=== PATIENT | female | born 1965 | race Caucasian/White ===

== ENCOUNTER 2016-12-10 08:29 | Emergency (ER) | payer MEDICAID ==
[~2016-12-10] VITALS: Ht 160 cm; Wt 101.4 kg
[2016-12-10] MEDS ORDERED: AMLO-511 PO (08:44)
[2016-12-10] MEDS ORDERED: PARO10TA89 PO (08:44)
[2016-12-10] MEDS ORDERED: ATOR40TA28 PO (08:44)
[2016-12-10] MEDS ORDERED: TOPI25 PO (08:44)
[2016-12-10] MEDS ORDERED: PRED20 PO (08:44)
[2016-12-10] MEDS ORDERED: MET750 PO (08:44)
[2016-12-10] MEDS ORDERED: LISI-661 PO (08:44)
[2016-12-10 09:11] LABS: BASOPHILS # (AUTO) 0.05 K/uL (0.00-0.20); BASOPHILS % (AUTO) 0.7 % (0.0-2.0); EOSINOPHILS # (AUTO) 0.19 K/uL (0.00-0.70); EOSINOPHILS % (AUTO) 3.16 % (1.0-6.0); HEMATOCRIT 31.8 % (36-46); HEMOGLOBIN 10.4 g/dL (12.0-16.0); LYMPHOCYTES % (AUTO) 32.3 % (22.0-44.0); MEAN CORPUSCULAR HEMOGLOBIN 27.4 pg (26.0-34.0); MEAN CORPUSCULAR HGB CONC 32.7 G/dL (31.0-37.0); MEAN CORPUSCULAR VOLUME 84 fL (80-100); MONOCYTES # (AUTO) 0.4 K/uL (0.1-1.0); MONOCYTES % (AUTO) 6.4 % (2.0-9.0); NEUTROPHILS # (AUTO) 3.5 K/uL (1.8-7.7); NEUTROPHILS % (AUTO) 57.4 % (40.0-70.0); PLATELET COUNT (AUTO) 231 K/uL (150-450); RED BLOOD CELL COUNT(AUTO) 3.79 MIL/uL (4.00-5.20); RED CELL DISTRIBUTION WIDTH 14.3 % (11.5-14.5); WHITE BLOOD COUNT (AUTO) 6.2 K/uL (4.5-11.0)
[2016-12-10 09:55] LABS: CALCIUM, TOTAL 8.4 mg/dL (8.8-10.5); CREATININE 0.99 mg/dL (0.60-1.30); POTASSIUM 3.8 mmol/L (3.5-5.1)
[2016-12-10 10:00] LABS: ALBUMIN 3.3 g/dL (3.4-5.0); BILIRUBIN,TOTAL 0.4 mg/dL (0.1-1.0); TOTAL PROTEIN, SERUM 6.8 g/dL (6.4-8.2)
[2016-12-10 12:00] VITALS: BP 143/82
== END 2016-12-10 12:08 | disposition home or self-care (01) ==
LOC: EMS 08:31
DX: N93.9 Abnormal uterine and vaginal bleeding, unspecified (principal); I10 Essential (primary) hypertension; Z88.1 Allergy status to other antibiotic agents; Z88.5 Allergy status to narcotic agent; Z88.0 Allergy status to penicillin; Z88.8 Allergy status to other drugs, medicaments and biological substances
CPT/HCPCS: 76856; 99285

== ENCOUNTER 2017-01-15 09:07 | Emergency (ER) | payer MEDICAID ==
[~2017-01-15] VITALS: Ht 157.5 cm; Wt 68.2 kg
[~2017-01-15 09:07] MED LIST: AMLO-511 PO; ATOR40TA28 PO; LISI-661 PO; MET750 PO; PARO10TA89 PO; PRED20 PO; TOPI25 PO
[2017-01-15] MEDS ORDERED: IBUP-2071 PO (09:15)
[2017-01-15] MEDS ORDERED: FERG325 PO (09:15)
[2017-01-15] MEDS ORDERED: ACET-66 PO (09:15)
[2017-01-15] MEDS ORDERED: HYDROCODONE/ACETAMINOPHEN 5-325 MG TABLET PO ONE (10:00)
[2017-01-15 10:14] LABS: BASOPHILS % (AUTO) 0.5 % (0.0-2.0); EOSINOPHILS % (AUTO) 3.2 % (1.0-6.0); HEMOGLOBIN 10.5 g/dL (12.0-16.0); LYMPHOCYTES # (AUTO) 1.6 K/uL (1.0-4.8); LYMPHOCYTES % (AUTO) 26.1 % (22.0-44.0); MEAN CORPUSCULAR HEMOGLOBIN 27.6 pg (26.0-34.0); MEAN CORPUSCULAR VOLUME 81 fL (80-100); MONOCYTES # (AUTO) 0.4 K/uL (0.1-1.0); MONOCYTES % (AUTO) 6.3 % (2.0-9.0); NEUTROPHILS # (AUTO) 3.8 K/uL (1.8-7.7); NEUTROPHILS % (AUTO) 63.9 % (40.0-70.0); PLATELET COUNT (AUTO) 235 K/uL (150-450); RED BLOOD CELL COUNT(AUTO) 3.81 MIL/uL (4.00-5.20)
[2017-01-15 10:22] LABS: ANION GAP 11 mmol/L (8-16); CALCIUM, TOTAL 8.5 mg/dL (8.8-10.5); CARBON DIOXIDE 24 mmol/L (22-29); CHLORIDE 106 mmol/L (98-107); CREATININE 0.93 mg/dL (0.60-1.30); GLOMERULAR FILTR. RATE CALC > 60 mL/min (>60); POTASSIUM 4.1 mmol/L (3.5-5.1); SODIUM SERUM 141 mmol/L (136-145); UREA NITROGEN, BLOOD 16 mg/dL (7-18)
[2017-01-15 10:24] LABS: INR 0.9 (0.9-1.1)
[2017-01-15 10:28] LABS: ALANINE AMINOTRANSFERASE 50 U/L (12-78); ALBUMIN 3.1 g/dL (3.4-5.0); ASPARTATE AMINOTRANSFERASE 30 U/L (15-37); BILIRUBIN,TOTAL 0.2 mg/dL (0.1-1.0); TOTAL PROTEIN, SERUM 6.9 g/dL (6.4-8.2)
[2017-01-15 12:37] VITALS: BP 149/73
== END 2017-01-15 13:01 | disposition home or self-care (01) ==
LOC: EMS 09:08
DX: N93.8 Other specified abnormal uterine and vaginal bleeding (principal); I10 Essential (primary) hypertension; Z88.0 Allergy status to penicillin; Z88.5 Allergy status to narcotic agent; Z88.1 Allergy status to other antibiotic agents; Z88.6 Allergy status to analgesic agent
CPT/HCPCS: 76856; 99285

== ENCOUNTER 2017-01-24 14:15 | Emergency (ER) | payer MEDICAID ==
[~2017-01-24] VITALS: Ht 162.6 cm; Wt 102.3 kg
[~2017-01-24 14:15] MED LIST changes: +ACET-66 PO; +FERG325 PO; +IBUP-2071 PO
[2017-01-24 15:02] LABS: BASOPHILS % (AUTO) 0.4 % (0.0-2.0); EOSINOPHILS % (AUTO) 1.7 % (1.0-6.0); HEMATOCRIT 33.2 % (36-46); LYMPHOCYTES # (AUTO) 2.8 K/uL (1.0-4.8); LYMPHOCYTES % (AUTO) 31.1 % (22.0-44.0); MEAN CORPUSCULAR HEMOGLOBIN 26.8 pg (26.0-34.0); MEAN CORPUSCULAR HGB CONC 33.3 G/dL (31.0-37.0); MEAN CORPUSCULAR VOLUME 81 fL (80-100); MONOCYTES # (AUTO) 0.6 K/uL (0.1-1.0); MONOCYTES % (AUTO) 6.6 % (2.0-9.0); NEUTROPHILS # (AUTO) 5.5 K/uL (1.8-7.7); NEUTROPHILS % (AUTO) 60.2 % (40.0-70.0); PLATELET COUNT (AUTO) 322 K/uL (150-450); RED BLOOD CELL COUNT(AUTO) 4.12 MIL/uL (4.00-5.20); RED CELL DISTRIBUTION WIDTH 14.6 % (11.5-14.5); WHITE BLOOD COUNT (AUTO) 9.2 K/uL (4.5-11.0)
[2017-01-24] MEDS ORDERED: KETOROLAC TROMETHAMINE 30 MG/ML VIAL IM ONE (17:00)
[2017-01-24] MEDS ORDERED: HYDROCODONE/ACETAMINOPHEN 5-325 MG TABLET PO ONE (19:00)
[2017-01-24 20:06] VITALS: BP 145/81
== END 2017-01-24 20:14 | disposition home or self-care (01) ==
LOC: EMS 14:18
DX: N93.9 Abnormal uterine and vaginal bleeding, unspecified (principal); I10 Essential (primary) hypertension; Z88.0 Allergy status to penicillin; Z88.5 Allergy status to narcotic agent; Z88.1 Allergy status to other antibiotic agents
CPT/HCPCS: 36415; 76856; 84703; 85025; 96372; 99285; J1885

== ENCOUNTER 2017-07-14 19:50 | Emergency (ER) | payer MEDICAID ==
[~2017-07-14] VITALS: Ht 160 cm; Wt 107.7 kg
[2017-07-14] MEDS ORDERED: PROV5 PO (20:28)
[2017-07-14] MEDS ORDERED: DEPOP150I IM (20:28)
[2017-07-14] MEDS ORDERED: HYDR25TA PO (20:28)
[2017-07-14] MEDS ORDERED: MET500 PO (20:34)
[2017-07-14 22:36] LABS: BASOPHILS % (AUTO) 0.8 % (0.0-2.0); EOSINOPHILS % (AUTO) 4.9 % (1.0-6.0); HEMATOCRIT 30.8 % (36-46); HEMOGLOBIN 10.1 g/dL (12.0-16.0); LYMPHOCYTES # (AUTO) 2.9 K/uL (1.0-4.8); LYMPHOCYTES % (AUTO) 33.6 % (22.0-44.0); MEAN CORPUSCULAR HEMOGLOBIN 24.9 pg (26.0-34.0); MEAN CORPUSCULAR HGB CONC 32.7 G/dL (31.0-37.0); MEAN CORPUSCULAR VOLUME 76 fL (80-100); MONOCYTES # (AUTO) 0.7 K/uL (0.1-1.0); MONOCYTES % (AUTO) 7.9 % (2.0-9.0); NEUTROPHILS # (AUTO) 4.6 K/uL (1.8-7.7); NEUTROPHILS % (AUTO) 52.8 % (40.0-70.0); PLATELET COUNT (AUTO) 293 K/uL (150-450); RED BLOOD CELL COUNT(AUTO) 4.06 MIL/uL (4.00-5.20)
[2017-07-14 22:44] LABS: ANION GAP 8 mmol/L (8-16); CALCIUM, TOTAL 8.6 mg/dL (8.8-10.5); CARBON DIOXIDE 28 mmol/L (22-29); CHLORIDE 103 mmol/L (98-107); CREATININE 0.84 mg/dL (0.60-1.30); GLOMERULAR FILTR. RATE CALC > 60 mL/min (>60); GLUCOSE,RANDOM 94 mg/dL (70-110); POTASSIUM 3.7 mmol/L (3.5-5.1); SODIUM SERUM 139 mmol/L (136-145); UREA NITROGEN, BLOOD 19 mg/dL (7-18)
[2017-07-14 22:45] VITALS: BP 134/71
[2017-07-14 22:50] LABS: ALANINE AMINOTRANSFERASE 34 U/L (12-78); ALBUMIN 3.6 g/dL (3.4-5.0); ALKALINE PHOSPHATASE 87 U/L (46-116); ASPARTATE AMINOTRANSFERASE 23 U/L (15-37); BILIRUBIN,TOTAL 0.3 mg/dL (0.1-1.0); LIPASE 182 U/L (73-393); TOTAL PROTEIN, SERUM 7.5 g/dL (6.4-8.2)
[2017-07-14] MEDS ORDERED: METHOCARBAMOL 500 MG TABLET PO ONE (23:00)
[2017-07-14] MEDS ORDERED: KETOROLAC TROMETHAMINE 60 MG/2 ML VIAL IM ONE (23:00)
[2017-07-14] MEDS ORDERED: METHOCARBAMOL 750 MG TABLET PO ONE (23:00)
== END 2017-07-14 23:19 | disposition home or self-care (01) ==
LOC: EMS 19:51
DX: M54.5 Low back pain (principal); N93.8 Other specified abnormal uterine and vaginal bleeding; G89.29 Other chronic pain; I10 Essential (primary) hypertension; Z88.0 Allergy status to penicillin; Z88.1 Allergy status to other antibiotic agents; Z88.5 Allergy status to narcotic agent
CPT/HCPCS: 80053; 83690; 84703; 85025; 96372; 99284; J1885

== ENCOUNTER 2017-10-13 19:58 | Emergency (ER) | payer MEDICAID ==
[~2017-10-13] VITALS: Ht 160 cm; Wt 105.0 kg
[~2017-10-13 19:58] MED LIST changes: +DEPOP150I IM; +HYDR25TA PO; +MET500 PO; -MET750 PO; +PROV5 PO
[2017-10-13] MEDS ORDERED: BACL10TA PO (20:22)
[2017-10-13] MEDS ORDERED: CALC1TAB97 PO (20:22)
[2017-10-13] MEDS ORDERED: HYDROCODONE/ACETAMINOPHEN 5-325 MG TABLET PO ONE (21:00)
[2017-10-13] MEDS ORDERED: KETOROLAC TROMETHAMINE 30 MG/ML VIAL IM ONE (21:30)
[2017-10-13 22:58] VITALS: BP 130/85
[2017-10-13] MEDS ORDERED: DiphenhydrAMINE HCL 25 MG CAPSULE PO ONE (23:15)
== END 2017-10-13 22:59 | disposition home or self-care (01) ==
LOC: EMS 20:00
DX: M54.5 Low back pain (principal); M79.89 Other specified soft tissue disorders; G89.29 Other chronic pain; F41.9 Anxiety disorder, unspecified; E78.00 Pure hypercholesterolemia, unspecified; I10 Essential (primary) hypertension; Z90.49 Acquired absence of other specified parts of digestive tract; Z88.1 Allergy status to other antibiotic agents; Z88.5 Allergy status to narcotic agent; Z88.0 Allergy status to penicillin; Z79.899 Other long term (current) drug therapy
CPT/HCPCS: 81002; 96372; 99283; J1885

== ENCOUNTER 2019-03-16 08:46 | Emergency (ER) | payer MEDICAID ==
[~2019-03-16] VITALS: Ht 160 cm; Wt 107.3 kg
[~2019-03-16 08:46] MED LIST changes: -AMLO-511 PO; +AMLO5TAB9 PO; +BACL10TA PO; +CALC1TAB97 PO; -FERG325 PO; -IBUP-2071 PO; -MET500 PO; +METH500T7 PO; -PRED20 PO
[2019-03-16] MEDS ORDERED: ACETAMINOPHEN 500 MG TABLET PO ONE (11:45)
[2019-03-16] MEDS ORDERED: KETOROLAC TROMETHAMINE 30 MG/ML VIAL IM ONE (11:45)
[2019-03-16 11:56] LABS: BASOPHILS % (AUTO) 1.2 % (0.0-2.0); EOSINOPHILS % (AUTO) 2.9 % (1.0-6.0); HEMATOCRIT 37.6 % (36-46); HEMOGLOBIN 12.5 g/dL (12.0-16.0); LYMPHOCYTES # (AUTO) 1.6 K/uL (1.0-4.8); MEAN CORPUSCULAR HEMOGLOBIN 28.5 pg (26.0-34.0); MEAN CORPUSCULAR HGB CONC 33.2 G/dL (31.0-37.0); MEAN CORPUSCULAR VOLUME 86 fL (80-100); MONOCYTES # (AUTO) 0.3 K/uL (0.1-1.0); NEUTROPHILS # (AUTO) 3.3 K/uL (1.8-7.7); NEUTROPHILS % (AUTO) 60.9 % (40.0-70.0); PLATELET COUNT (AUTO) 233 K/uL (150-450); RED BLOOD CELL COUNT(AUTO) 4.38 MIL/uL (4.00-5.20); RED CELL DISTRIBUTION WIDTH 13.6 % (11.5-14.5)
[2019-03-16 12:12] LABS: APPEARANCE,URINE CLEAR (CLEAR); BILIRUBIN,URINE NEGATIVE (NEGATIVE); GLUCOSE, URINE (UA) NEGATIVE (NEGATIVE); KETONES,URINE NEGATIVE (NEGATIVE); LEUKOCYTE ESTERASE ,URINE NEGATIVE (NEGATIVE); NITRATE,URINE NEGATIVE (NEGATIVE); OCCULT BLOOD,URINE NEGATIVE (NEGATIVE); PH,URINE 6.5 (5.0-8.0); PROTEIN,URINE NEGATIVE (NEGATIVE); UROBILINOGEN,URINE 0.2 mg/dL (<=1.0)
[2019-03-16 12:13] LABS: CALCIUM, TOTAL 8.6 mg/dL (8.8-10.5); CREATININE 1.01 mg/dL (0.60-1.30); POTASSIUM 3.4 mmol/L (3.5-5.1)
[2019-03-16 12:18] LABS: ALBUMIN 3.4 g/dL (3.4-5.0); BILIRUBIN,TOTAL 0.6 mg/dL (0.1-1.0); TOTAL PROTEIN, SERUM 6.8 g/dL (6.4-8.2)
[2019-03-16 13:22] LABS: B-TYPE NATRIURETIC PEPTIDE 90 pg/mL (0-100)
[2019-03-16 13:32] LABS: CREATINE KINASE, TOTAL ONLY 96 U/L (26-192)
[2019-03-16 16:57] VITALS: BP 145/71
== END 2019-03-16 17:00 | disposition home or self-care (01) ==
LOC: EMS 08:48
DX: M54.9 Dorsalgia, unspecified (principal); G89.29 Other chronic pain; F41.9 Anxiety disorder, unspecified; E78.00 Pure hypercholesterolemia, unspecified; I10 Essential (primary) hypertension; Z90.89 Acquired absence of other organs; Z88.1 Allergy status to other antibiotic agents; Z88.5 Allergy status to narcotic agent; Z88.0 Allergy status to penicillin; Z79.899 Other long term (current) drug therapy
CPT/HCPCS: 36415; 71045; 80053; 81003; 82550; 83880; 84484; 85025; 93005; 96372; 99285; J1885

== ENCOUNTER 2019-11-23 09:35 | Emergency (ER) | payer MEDICAID ==
[~2019-11-23] VITALS: Ht 162.6 cm; Wt 114.5 kg
[~2019-11-23 09:35] MED LIST changes: +AMLO-257 PO; -AMLO5TAB9 PO; +HYDR-1475 PO; -HYDR25TA PO
[2019-11-23] MEDS ORDERED: NITR0.4T52 SL (09:40)
[2019-11-23] MEDS ORDERED: ONDANSETRON HCL 4 MG/2 ML VIAL IVP ONE (10:00)
[2019-11-23] MEDS ORDERED: KETOROLAC TROMETHAMINE 30 MG/ML VIAL IVP ONE (10:00)
[2019-11-23] MEDS ORDERED: SODIUM CHLORIDE 0.9% 1,000 ML IV ONE (10:00)
[2019-11-23 10:38] LABS: BASOPHILS % (AUTO) 0.9 % (0.0-2.0); EOSINOPHILS % (AUTO) 3.4 % (1.0-6.0); LYMPHOCYTES # (AUTO) 1.8 K/uL (1.0-4.8); LYMPHOCYTES % (AUTO) 28.8 % (22.0-44.0); MEAN CORPUSCULAR HEMOGLOBIN 29.4 pg (26.0-34.0); MEAN CORPUSCULAR HGB CONC 33.4 G/dL (31.0-37.0); MEAN CORPUSCULAR VOLUME 88 fL (80-100); MONOCYTES # (AUTO) 0.4 K/uL (0.1-1.0); NEUTROPHILS # (AUTO) 3.8 K/uL (1.8-7.7); NEUTROPHILS % (AUTO) 60.9 % (40.0-70.0); PLATELET COUNT (AUTO) 226 K/uL (150-450); RED BLOOD CELL COUNT(AUTO) 4.08 MIL/uL (4.00-5.20); RED CELL DISTRIBUTION WIDTH 14.1 % (11.5-14.5)
[2019-11-23 10:53] LABS: ALBUMIN 3.6 g/dL (3.4-5.0); BILIRUBIN,TOTAL 0.5 mg/dL (0.1-1.0); CALCIUM, TOTAL 9.1 mg/dL (8.8-10.5); CREATININE 1.42 mg/dL (0.60-1.30)
[2019-11-23 10:56] LABS: POTASSIUM 2.8 mmol/L (3.5-5.1)
[2019-11-23] MEDS ORDERED: POTASSIUM CHLORIDE 20 MEQ ER TABLET PO ONE (11:00)
[2019-11-23 11:26] LABS: APPEARANCE,URINE CLOUDY (CLEAR); BILIRUBIN,URINE NEGATIVE (NEGATIVE); GLUCOSE, URINE (UA) NEGATIVE (NEGATIVE); KETONES,URINE NEGATIVE (NEGATIVE); LEUKOCYTE ESTERASE ,URINE MODERATE (NEGATIVE); NITRATE,URINE POSITIVE (NEGATIVE); OCCULT BLOOD,URINE NEGATIVE (NEGATIVE); PROTEIN,URINE NEGATIVE (NEGATIVE); UROBILINOGEN,URINE 0.2 mg/dL (<=1.0)
[2019-11-23 11:41] LABS: BACTERIA,URINE Moderate /HPF (None Seen); RBC,URINE None Seen /HPF (0-2); SQUAMOUS EPITHELIAL CELL,UR Few /LPF (None Seen)
[2019-11-23] MEDS ORDERED: PROP80TA4 PO (11:44)
[2019-11-23] MEDS ORDERED: LISI-662 PO (11:44)
[2019-11-23] MEDS ORDERED: GABA-1181 PO (11:44)
[2019-11-23] MEDS ORDERED: LORA10TA7 PO (11:44)
[2019-11-23] MEDS ORDERED: GENTAMICIN 100 MG/NACL ISO-OSM 50 ML IV ONE (11:45)
[2019-11-23 12:20] VITALS: BP 118/60
== END 2019-11-23 12:58 | disposition home or self-care (01) ==
LOC: EMS 09:41
DX: N12 Tubulo-interstitial nephritis, not specified as acute or chronic (principal); I10 Essential (primary) hypertension; E78.00 Pure hypercholesterolemia, unspecified
CPT/HCPCS: 36415; 74176; 80053; 81001; 83605; 83690; 85025; 87077; 87086; 96361; 96365; 96375; 99285; J1580; J1885; J2405; J7030

== ENCOUNTER 2019-12-30 14:56 | Observation (INO) | payer MEDICAID ==
[~2019-12-30] VITALS: Ht 157.5 cm; Wt 113.0 kg
[~2019-12-30 14:56] MED LIST changes: +GABA-1181 PO; -LISI-661 PO; +LISI-662 PO; +LORA10TA7 PO; +NITR0.4T52 SL; +PROP80TA4 PO
[2019-12-30] MEDS ORDERED: MORPHINE SULFATE 4 MG/ML SYRINGE IVP ONE (17:30)
[2019-12-30] MEDS ORDERED: SODIUM CHLORIDE 0.9% 1,000 ML IV ONE (17:30)
[2019-12-30] MEDS ORDERED: ONDANSETRON HCL 4 MG/2 ML VIAL IVP ONE (17:30)
[2019-12-30 17:34] LABS: BASOPHILS % (AUTO) 0.5 % (0.0-2.0); EOSINOPHILS % (AUTO) 2.8 % (1.0-6.0); HEMATOCRIT 31.1 % (36-46); HEMOGLOBIN 10.4 g/dL (12.0-16.0); LYMPHOCYTES # (AUTO) 2.3 K/uL (1.0-4.8); LYMPHOCYTES % (AUTO) 32.7 % (22.0-44.0); MEAN CORPUSCULAR HEMOGLOBIN 29.5 pg (26.0-34.0); MEAN CORPUSCULAR HGB CONC 33.3 G/dL (31.0-37.0); MEAN CORPUSCULAR VOLUME 89 fL (80-100); MONOCYTES # (AUTO) 0.6 K/uL (0.1-1.0); PLATELET COUNT (AUTO) 209 K/uL (150-450); RED BLOOD CELL COUNT(AUTO) 3.51 MIL/uL (4.00-5.20)
[2019-12-30 17:43] LABS: CREATININE 1.02 mg/dL (0.60-1.30); POTASSIUM 3.3 mmol/L (3.5-5.1)
[2019-12-30 17:44] LABS: CALCIUM, TOTAL 8.7 mg/dL (8.8-10.5)
[2019-12-30 17:49] LABS: ALBUMIN 3.2 g/dL (3.4-5.0); BILIRUBIN,TOTAL 0.3 mg/dL (0.1-1.0); TOTAL PROTEIN, SERUM 6.9 g/dL (6.4-8.2)
[2019-12-30] MEDS ORDERED: *CLINICAL-MEROPENEM DOSING CLINICAL ONE (18:30)
[2019-12-30] MEDS ORDERED: MEROPENEM 1 GM in SODIUM CHLORIDE 0.9% 100 ML IV ONE (18:30)
[2019-12-30 18:44] LABS: APPEARANCE,URINE CLEAR (CLEAR); BILIRUBIN,URINE NEGATIVE (NEGATIVE); GLUCOSE, URINE (UA) NEGATIVE (NEGATIVE); KETONES,URINE NEGATIVE (NEGATIVE); LEUKOCYTE ESTERASE ,URINE NEGATIVE (NEGATIVE); NITRATE,URINE NEGATIVE (NEGATIVE); OCCULT BLOOD,URINE NEGATIVE (NEGATIVE); PROTEIN,URINE NEGATIVE (NEGATIVE); UROBILINOGEN,URINE 0.2 mg/dL (<=1.0)
[2019-12-30] MEDS ORDERED: MAGNESIUM HYDROXIDE SUSPENSION 30 ML UDCUP PO PRN (19:15)
[2019-12-30] MEDS ORDERED: KETOROLAC TROMETHAMINE 15 MG/ML VIAL IVP PRN (19:15)
[2019-12-30] MEDS ORDERED: ONDANSETRON HCL 4 MG/2 ML VIAL IVP PRN (19:15)
[2019-12-30] MEDS ORDERED: BISACODYL 10 MG RECTAL RECTAL SUPPOSITORY PR PRN (19:15)
[2019-12-30] MEDS ORDERED: MORPHINE SULFATE 2 MG/ML SYRINGE IVP PRN (19:15)
[2019-12-30] MEDS ORDERED: POTASSIUM CHLORIDE 20 MEQ ER TABLET PO ONE (19:45)
[2019-12-30 20:30] VITALS: BP 140/66
[2019-12-30] MEDS: DOCUSATE SODIUM 100 MG CAPSULE PO SCH (21:07)
[2019-12-31] VITALS (7 sets, daily range): BP systolic 101–123; BP diastolic 49–71
[2019-12-31] MEDS: ACETAMINOPHEN 500 MG TABLET PO SCH ×3 (00:52→16:17)
[2019-12-31] MEDS: ENOXAPARIN SODIUM 40 MG/0.4 ML PF SYRINGE SQ SCH (08:54)
[2019-12-31] MEDS: DOCUSATE SODIUM 100 MG CAPSULE PO SCH (08:54)
[2019-12-31] MEDS ORDERED: DOCUSATE SODIUM 100 MG CAPSULE PO PRN (10:45)
[2019-12-31] MEDS ORDERED: BACLOFEN 10 MG TABLET PO PRN (11:00)
[2019-12-31] MEDS ORDERED: HYDROCORTISONE 2.5% 30 GM CREAM TP PRN (11:00)
[2019-12-31] MEDS ORDERED: NITROGLYCERIN 0.4 MG SUBLINGUAL TABLET #25 SL PRN (11:00)
[2019-12-31] MEDS: FERROUS SULFATE 325 MG EC TABLET PO SCH ×2 (12:27→18:04)
[2019-12-31] MEDS: PANTOPRAZOLE SODIUM 40 MG DR TABLET PO SCH (12:27)
[2019-12-31 13:17] LABS: ANION GAP 6 mmol/L (8-16); CALCIUM, TOTAL 8.6 mg/dL (8.8-10.5); CARBON DIOXIDE 30 mmol/L (22-29); CHLORIDE 104 mmol/L (98-107); CREATININE 0.83 mg/dL (0.60-1.30); GLOMERULAR FILTR. RATE CALC > 60 mL/min (>60); GLUCOSE,RANDOM 114 mg/dL (70-110); POTASSIUM 3.9 mmol/L (3.5-5.1); SODIUM SERUM 140 mmol/L (136-145); UREA NITROGEN, BLOOD 20 mg/dL (7-18)
[2019-12-31] MEDS: GABAPENTIN 300 MG CAPSULE PO SCH ×2 (16:17→21:22)
[2019-12-31] MEDS ORDERED: SENNA 187 MG TABLET PO SCH (21:00)
[2019-12-31] MEDS ORDERED: ATORVASTATIN CALCIUM 40 MG TABLET PO SCH (21:00)
[2019-12-31] MEDS: FUROSEMIDE 40 MG TABLET PO SCH (21:23)
[2020-01-01 00:01] VITALS: BP 126/54
[2020-01-01] MEDS: ACETAMINOPHEN 500 MG TABLET PO SCH ×3 (00:26→16:32)
[2020-01-01 04:14] VITALS: BP 100/56
[2020-01-01 07:19] LABS: BASOPHILS % (AUTO) 1.1 % (0.0-2.0); EOSINOPHILS % (AUTO) 4.3 % (1.0-6.0); HEMATOCRIT 30.4 % (36-46); HEMOGLOBIN 10.4 g/dL (12.0-16.0); LYMPHOCYTES # (AUTO) 1.8 K/uL (1.0-4.8); LYMPHOCYTES % (AUTO) 34.1 % (22.0-44.0); MEAN CORPUSCULAR HEMOGLOBIN 30.3 pg (26.0-34.0); MEAN CORPUSCULAR HGB CONC 34.2 G/dL (31.0-37.0); MEAN CORPUSCULAR VOLUME 89 fL (80-100); MONOCYTES # (AUTO) 0.3 K/uL (0.1-1.0); MONOCYTES % (AUTO) 6.4 % (2.0-9.0); NEUTROPHILS # (AUTO) 2.8 K/uL (1.8-7.7); NEUTROPHILS % (AUTO) 54.1 % (40.0-70.0); PLATELET COUNT (AUTO) 193 K/uL (150-450); RED BLOOD CELL COUNT(AUTO) 3.43 MIL/uL (4.00-5.20)
[2020-01-01 07:37] LABS: ANION GAP 6 mmol/L (8-16); CALCIUM, TOTAL 8.3 mg/dL (8.8-10.5); CARBON DIOXIDE 31 mmol/L (22-29); CHLORIDE 105 mmol/L (98-107); CREATININE 0.86 mg/dL (0.60-1.30); GLOMERULAR FILTR. RATE CALC > 60 mL/min (>60); GLUCOSE,RANDOM 100 mg/dL (70-110); POTASSIUM 3.5 mmol/L (3.5-5.1); SODIUM SERUM 142 mmol/L (136-145); UREA NITROGEN, BLOOD 18 mg/dL (7-18)
[2020-01-01 08:48] VITALS: BP 120/73
[2020-01-01] MEDS ORDERED: ASCORBIC ACID 500 MG TABLET PO SCH (09:00)
[2020-01-01] MEDS: PANTOPRAZOLE SODIUM 40 MG DR TABLET PO SCH (09:27)
[2020-01-01] MEDS: GABAPENTIN 300 MG CAPSULE PO SCH ×2 (09:27→16:32)
[2020-01-01] MEDS: ENOXAPARIN SODIUM 40 MG/0.4 ML PF SYRINGE SQ SCH (09:27)
[2020-01-01] MEDS: FERROUS SULFATE 325 MG EC TABLET PO SCH ×2 (09:28→11:50)
[2020-01-01] MEDS: FUROSEMIDE 40 MG TABLET PO SCH (09:28)
[2020-01-01 12:03] VITALS: BP 119/69
[2020-01-01] MEDS ORDERED: ACET-66 PO (16:47)
[2020-01-01] MEDS ORDERED: ASCO500 PO (16:48)
[2020-01-01] MEDS ORDERED: FERR-89 PO (16:48)
[2020-01-01] MEDS ORDERED: FURO40 PO (16:49)
[2020-01-01] MEDS ORDERED: GABA-1181 PO (16:49)
[2020-01-01] MEDS ORDERED: SENN8.6T90 PO (16:50)
[2020-01-01] MEDS ORDERED: BACL5TAB PO (16:52)
[2020-01-01] MEDS ORDERED: HYDR28.35 TP (16:53)
[2020-01-01] MEDS ORDERED: NITR0.4T50 SL (16:55)
== END 2020-01-01 19:10 | disposition home or self-care (01) ==
LOC: EMS 15:03 → INTOOBSV 19:14 → 5S 19:14 → 6N 12-31 11:20
PROVIDERS: ADMIT Internal Medicine; ATTEND Internal Medicine
DX: R30.0 Dysuria (principal); K59.00 Constipation, unspecified; E66.01 Morbid (severe) obesity due to excess calories; E87.6 Hypokalemia; I10 Essential (primary) hypertension; Z68.42 Body mass index [BMI] 45.0-49.9, adult; M51.36 Other intervertebral disc degeneration, lumbar region; E78.00 Pure hypercholesterolemia, unspecified
CPT/HCPCS: 36415 ×3; 72131; 80048 ×2; 80053; 81003; 82150; 83690; 84145; 85025 ×2; 93306; 96365; 96372 ×2; 96375; 97110; 97116; 97165; 97535; 99219 ×3; 99284; J1650 ×2; J1885 ×2; J2185; J2270 ×2; J2405; J7030; J7050

== ENCOUNTER 2020-05-01 09:23 | Inpatient (IN) | payer MEDICAID ==
[~2020-05-01] VITALS: Ht 160 cm; Wt 108.5 kg
[~2020-05-01 09:23] MED LIST changes: -AMLO-257 PO; +ASCO500 PO; -BACL10TA PO; +BACL5TAB PO; +FERR-89 PO; +FURO40 PO; -HYDR-1475 PO; +HYDR28.35 TP; -LISI-662 PO; -METH500T7 PO; +NITR0.4T50 SL; -NITR0.4T52 SL; -PROP80TA4 PO; -PROV5 PO; +SENN8.6T90 PO; -TOPI25 PO
[2020-05-01] MEDS ORDERED: ASPIRIN 325 MG TABLET PO ONE (09:45)
[2020-05-01] MEDS ORDERED: IOVERSOL 350 MG/ML 100 ML VIAL ONE (10:07)
[2020-05-01] MEDS ORDERED: SODIUM CHLORIDE 0.9% 100 ML ONE (10:07)
[2020-05-01 10:10] LABS: BASOPHILS % (AUTO) 0.9 % (0.0-2.0); EOSINOPHILS % (AUTO) 4.6 % (1.0-6.0); HEMATOCRIT 31.7 % (36-46); HEMOGLOBIN 10.3 g/dL (12.0-16.0); LYMPHOCYTES # (AUTO) 2.9 K/uL (1.0-4.8); LYMPHOCYTES % (AUTO) 39.5 % (22.0-44.0); MEAN CORPUSCULAR HEMOGLOBIN 28.2 pg (26.0-34.0); MEAN CORPUSCULAR HGB CONC 32.4 G/dL (31.0-37.0); MEAN CORPUSCULAR VOLUME 87 fL (80-100); MONOCYTES # (AUTO) 0.5 K/uL (0.1-1.0); MONOCYTES % (AUTO) 7.3 % (2.0-9.0); NEUTROPHILS # (AUTO) 3.6 K/uL (1.8-7.7); NEUTROPHILS % (AUTO) 47.7 % (40.0-70.0); PLATELET COUNT (AUTO) 219 K/uL (150-450); RED BLOOD CELL COUNT(AUTO) 3.64 MIL/uL (4.00-5.20); RED CELL DISTRIBUTION WIDTH 14.4 % (11.5-14.5)
[2020-05-01 10:15] LABS: D-DIMER 0.82 mg/L FEU (0.00-0.50); PROTHROMBIN TIME 10.9 SEC (9.4-11.6)
[2020-05-01 10:19] LABS: CREATININE 0.99 mg/dL (0.60-1.30); POTASSIUM 4.2 mmol/L (3.5-5.1)
[2020-05-01 10:43] LABS: ALBUMIN 3.3 g/dL (3.4-5.0); BILIRUBIN,TOTAL 0.3 mg/dL (0.1-1.0); TOTAL PROTEIN, SERUM 7.3 g/dL (6.4-8.2)
[2020-05-01 11:21] LABS: COVID AG,FIA SOURCE NASOPHARYNGEAL
[2020-05-01 11:27] LABS: APPEARANCE,URINE CLEAR (CLEAR); BILIRUBIN,URINE NEGATIVE (NEGATIVE); GLUCOSE, URINE (UA) NEGATIVE (NEGATIVE); KETONES,URINE NEGATIVE (NEGATIVE); LEUKOCYTE ESTERASE ,URINE NEGATIVE (NEGATIVE); NITRATE,URINE NEGATIVE (NEGATIVE); OCCULT BLOOD,URINE NEGATIVE (NEGATIVE); PH,URINE 6.5 (5.0-8.0); PROTEIN,URINE NEGATIVE (NEGATIVE); UROBILINOGEN,URINE 0.2 mg/dL (<=1.0)
[2020-05-01] MEDS ORDERED: MAGNESIUM HYDROXIDE SUSPENSION 30 ML UDCUP PO PRN (11:45)
[2020-05-01] MEDS ORDERED: ONDANSETRON HCL 4 MG/2 ML VIAL IVP PRN (11:45)
[2020-05-01] MEDS ORDERED: ZOLPIDEM TARTRATE 5 MG TABLET PO PRN (11:45)
[2020-05-01] MEDS ORDERED: BISACODYL 10 MG RECTAL RECTAL SUPPOSITORY PR PRN (11:45)
[2020-05-01] MEDS ORDERED: IPRATROPIUM BROMIDE 0.5 MG/2.5 ML NEB SOLUTION NEB PRN (11:45)
[2020-05-01] MEDS ORDERED: HYDROCORTISONE 2.5% 30 GM OINTMENT TP PRN (11:45)
[2020-05-01] MEDS ORDERED: LORATADINE 10 MG TABLET PO PRN (11:45)
[2020-05-01] MEDS ORDERED: ALBUTEROL SULFATE 2.5 MG/0.5 ML NEB SOLUTION NEB PRN (11:45)
[2020-05-01] MEDS ORDERED: NITROGLYCERIN 0.4 MG SUBLINGUAL TABLET #25 SL PRN (11:45)
[2020-05-01] MEDS ORDERED: BACLOFEN 10 MG TABLET PO PRN (11:45)
[2020-05-01] MEDS: NITROGLYCERIN 2% (1 GM=INCH) PACKET TP SCH ×2 (11:53→18:14)
[2020-05-01] MEDS: FERROUS SULFATE 325 MG EC TABLET PO SCH ×3 (12:00→18:15)
[2020-05-01 12:14] LABS: INFLUENZA TYPE A NEGATIVE FOR TYPE A (NEGATIVE); INFLUENZA TYPE B NEGATIVE FOR TYPE B (NEGATIVE)
[2020-05-01] MEDS ORDERED: EPINEPHrine 1:1,000 [1 MG/ML] AMP ONE (13:42)
[2020-05-01] MEDS ORDERED: SUCCINYLCHOLINE CHLORIDE 20 MG/ML 10 ML VIAL ONE (13:44)
[2020-05-01] MEDS ORDERED: RAPID SEQUENCE KIT [RSI] 1 EACH KIT MISC ONE (13:44)
[2020-05-01] MEDS ORDERED: KETAMINE HCL 50 MG/ML 10 ML VIAL ONE (13:45)
[2020-05-01] MEDS ORDERED: MethylPREDNISolone SOD SUCC 125 MG/2 ML VIAL IVP ONE (13:45)
[2020-05-01] MEDS ORDERED: FAMOTIDINE 10 MG/ML 2 ML VIAL IVP ONE (13:45)
[2020-05-01] MEDS ORDERED: DiphenhydrAMINE HCL 50 MG/ML VIAL IVP ONE (13:45)
[2020-05-01] MEDS ORDERED: EPINEPHrine 1:1,000 [1 MG/ML] AMP IM ONE (13:45)
[2020-05-01] MEDS ORDERED: PROPOFOL 1000 MG/ISO-OSM 100 ML IV PRN (14:00)
[2020-05-01 14:21] LABS: ABG A-A DIFF O2 576.4 mmHg (10-20.0); ABG BASE EXCESS -2.3 mmol/L (-2.0-3.0); ABG HCO3 21.9 mmol/L (22.0-26.0); ABG OXYGEN CONTENT 15.6 mL/dL (15.0-23.0); ABG OXYGEN SATURATION 93.1 % (95.0-98.0); ABG OXYHEMOGLOBIN 93.1 % (94.0-100.0); ABG PCO2 59 mmHg (35-45); ABG PH 7.246 (7.35-7.450); ABG TOTAL HEMOGLOBIN 11.9 G/dL (12.0-18.0); PO2, ARTERIAL BG 77.8 mmHg (84.0-92.0); SOURCE, BLOOD GAS ARTERIAL; TEMPERATURE, FAHRENHEIT, BG 98.6 FAHREN (96.0-98.6)
[2020-05-01 14:27] LABS: O2 DEVICE,BLOOD GAS VENTILATOR (ROOM AIR); SITE, BLOOD GAS LFT RADIAL
[2020-05-01] MEDS: PROPOFOL 1000 MG/ISO-OSM 100 ML IV PRN ×3 (14:27→20:53)
[2020-05-01 14:28] LABS: PEEP,BG 8 cm H2O; VT, ABG 400 ml
[2020-05-01] MEDS ORDERED: AZITHROMYCIN 500 MG/NS 250 ML IV ONE (14:45)
[2020-05-01] MEDS ORDERED: AZTREONAM 2 GM in DEXTROSE 5%-WATER 50 ML IV ONE (14:45)
[2020-05-01] MEDS ORDERED: VANCOMYCIN HCL 1 GM/D5% WATER 200 ML IV ONE (14:45)
[2020-05-01 15:43] LABS: ABG A-A DIFF O2 506.3 mmHg (10-20.0); ABG BASE EXCESS -0.7 mmol/L (-2.0-3.0); ABG CARBOXYHEMOGLOBIN 0.3 % (0.0-1.5); ABG HCO3 23.9 mmol/L (22.0-26.0); ABG OXYGEN CONTENT 15.7 mL/dL (15.0-23.0); ABG OXYGEN SATURATION 98.7 % (95.0-98.0); ABG OXYHEMOGLOBIN 98.4 % (94.0-100.0); ABG PCO2 43 mmHg (35-45); ABG PH 7.375 (7.35-7.450); ABG TOTAL HEMOGLOBIN 11.1 G/dL (12.0-18.0); PO2, ARTERIAL BG 163.8 mmHg (84.0-92.0); SOURCE, BLOOD GAS ARTERIAL; TEMPERATURE, FAHRENHEIT, BG 98.6 FAHREN (96.0-98.6)
[2020-05-01 16:05] LABS: O2 DEVICE,BLOOD GAS VENTILATOR (ROOM AIR); PEEP,BG 8 cm H2O; SITE, BLOOD GAS RT RADIAL; VT, ABG 400 ml
[2020-05-01] MEDS ORDERED: FUROSEMIDE 40 MG/4 ML VIAL IVP ONE (16:30)
[2020-05-01] MEDS ORDERED: *CLINICAL-LEVOFLOXACIN IVPB DOSING CLINICAL ONE (16:30)
[2020-05-01] MEDS: HEPARIN SODIUM,PORCINE 5,000 UNITS/ML VIAL SQ SCH (16:43)
[2020-05-01] MEDS ORDERED: ETOMIDATE 2 MG/ML 10 ML VIAL IV ONE (17:15)
[2020-05-01] MEDS ORDERED: ROCURONIUM BROMIDE 10 MG/ML 5 ML VIAL IV ONE (17:16)
[2020-05-01] MEDS ORDERED: SODIUM CHLORIDE 0.9% 250 ML IV ONE (18:01)
[2020-05-01] MEDS: MethylPREDNISolone SOD SUCC 125 MG/2 ML VIAL IVP SCH (18:14)
[2020-05-01] MEDS: MetroNIDAZOLE 500 MG/NACL 100 ML IV SCH (18:14)
[2020-05-01] MEDS: GABAPENTIN 300 MG CAPSULE PO SCH ×2 (18:14→20:53)
[2020-05-01] MEDS: LEVOFLOXACIN 750 MG/D5% WATER 150 ML IV SCH (18:14)
[2020-05-01 20:00] VITALS: BP 124/69
[2020-05-01] MEDS: ATORVASTATIN CALCIUM 40 MG TABLET PO SCH (20:53)
[2020-05-01] MEDS: SENNA 187 MG TABLET PO SCH (20:53)
[2020-05-01] MEDS: DOCUSATE SODIUM 100 MG CAPSULE PO SCH (20:54)
[2020-05-01] MEDS: PARoxetine HCL 10 MG TABLET PO SCH (20:54)
[2020-05-01] MEDS: FUROSEMIDE 40 MG TABLET PO SCH (20:55)
[2020-05-02] VITALS: BP 118/65
[2020-05-02] MEDS: MethylPREDNISolone SOD SUCC 125 MG/2 ML VIAL IVP SCH ×4 (00:43→18:22)
[2020-05-02] MEDS: HEPARIN SODIUM,PORCINE 5,000 UNITS/ML VIAL SQ SCH ×3 (00:44→16:06)
[2020-05-02] MEDS: NITROGLYCERIN 2% (1 GM=INCH) PACKET TP SCH ×3 (00:44→12:44)
[2020-05-02] MEDS: MetroNIDAZOLE 500 MG/NACL 100 ML IV SCH ×3 (00:45→16:07)
[2020-05-02] MEDS: PROPOFOL 1000 MG/ISO-OSM 100 ML IV PRN ×6 (01:16→19:12)
[2020-05-02 04:00] VITALS: BP 144/73
[2020-05-02] MEDS ORDERED: PROPOFOL 1000 MG/ISO-OSM 100 ML IV ONE (05:02)
[2020-05-02 08:00] VITALS: BP 153/82
[2020-05-02] MEDS: FERROUS SULFATE 325 MG EC TABLET PO SCH ×3 (08:49→18:22)
[2020-05-02] MEDS: DOCUSATE SODIUM 100 MG CAPSULE PO SCH ×2 (08:50→21:24)
[2020-05-02] MEDS: FUROSEMIDE 40 MG TABLET PO SCH ×2 (08:50→21:24)
[2020-05-02] MEDS: PANTOPRAZOLE SODIUM 40 MG DR TABLET PO SCH (08:50)
[2020-05-02] MEDS: ASPIRIN 81 MG CHEWABLE TABLET PO SCH (08:50)
[2020-05-02] MEDS: ASCORBIC ACID 500 MG TABLET PO SCH (08:50)
[2020-05-02] MEDS: CALCIUM OYSTER SHELL 250 MG-VIT D3 125 UNITS TABLET PO SCH (08:51)
[2020-05-02] MEDS: PARoxetine HCL 10 MG TABLET PO SCH ×2 (08:51→21:24)
[2020-05-02] MEDS: GABAPENTIN 300 MG CAPSULE PO SCH ×3 (09:14→21:24)
[2020-05-02 12:00] VITALS: BP 143/77
[2020-05-02 16:00] VITALS: BP 147/72
[2020-05-02] MEDS: LEVOFLOXACIN 750 MG/D5% WATER 150 ML IV SCH (18:22)
[2020-05-02 20:00] VITALS: BP 145/81
[2020-05-02] MEDS: ATORVASTATIN CALCIUM 40 MG TABLET PO SCH (21:24)
[2020-05-02] MEDS: SENNA 187 MG TABLET PO SCH (21:24)
[2020-05-03] VITALS: BP 141/64
[2020-05-03] MEDS: MetroNIDAZOLE 500 MG/NACL 100 ML IV SCH ×3 (00:27→17:17)
[2020-05-03] MEDS: HEPARIN SODIUM,PORCINE 5,000 UNITS/ML VIAL SQ SCH ×3 (00:27→16:21)
[2020-05-03] MEDS: MethylPREDNISolone SOD SUCC 125 MG/2 ML VIAL IVP SCH ×4 (00:27→18:40)
[2020-05-03] MEDS: PROPOFOL 1000 MG/ISO-OSM 100 ML IV PRN ×4 (01:26→17:17)
[2020-05-03 04:00] VITALS: BP 136/71
[2020-05-03 08:00] VITALS: BP 172/92
[2020-05-03] MEDS: FERROUS SULFATE 325 MG EC TABLET PO SCH ×3 (08:00→17:30)
[2020-05-03] MEDS ORDERED: DEXMEDETOMIDINE HCL 200 MCG in SODIUM CHLORIDE 0.9% 48 ML IV PRN (08:30)
[2020-05-03] MEDS: CALCIUM OYSTER SHELL 250 MG-VIT D3 125 UNITS TABLET PO SCH (08:36)
[2020-05-03] MEDS: GABAPENTIN 300 MG CAPSULE PO SCH ×3 (08:36→20:51)
[2020-05-03] MEDS: ASPIRIN 81 MG CHEWABLE TABLET PO SCH (08:36)
[2020-05-03] MEDS: ASCORBIC ACID 500 MG TABLET PO SCH (08:36)
[2020-05-03] MEDS: PARoxetine HCL 10 MG TABLET PO SCH ×2 (08:36→20:51)
[2020-05-03] MEDS: FUROSEMIDE 40 MG TABLET PO SCH ×2 (08:36→20:51)
[2020-05-03] MEDS: PANTOPRAZOLE SODIUM 40 MG DR TABLET PO SCH (08:36)
[2020-05-03] MEDS: DOCUSATE SODIUM 100 MG CAPSULE PO SCH ×2 (08:36→20:51)
[2020-05-03] MEDS: HYDROmorphone 2 MG/ML VIAL IVP PRN ×3 (09:02→21:30)
[2020-05-03 09:30] LABS: BASOPHILS % (AUTO) 0.1 % (0.0-2.0); EOSINOPHILS % (AUTO) 0 % (1.0-6.0); HEMOGLOBIN 11.7 g/dL (12.0-16.0); LYMPHOCYTES # (AUTO) 0.8 K/uL (1.0-4.8); LYMPHOCYTES % (AUTO) 6.9 % (22.0-44.0); MEAN CORPUSCULAR HGB CONC 32.4 G/dL (31.0-37.0); MEAN CORPUSCULAR VOLUME 86 fL (80-100); MONOCYTES # (AUTO) 0.5 K/uL (0.1-1.0); MONOCYTES % (AUTO) 4.8 % (2.0-9.0); NEUTROPHILS # (AUTO) 10.1 K/uL (1.8-7.7); PLATELET COUNT (AUTO) 235 K/uL (150-450); RED BLOOD CELL COUNT(AUTO) 4.17 MIL/uL (4.00-5.20); RED CELL DISTRIBUTION WIDTH 15.1 % (11.5-14.5)
[2020-05-03 09:31] LABS: NEUTROPHILS % (AUTO) 88.2 % (40.0-70.0)
[2020-05-03 09:38] LABS: CALCIUM, TOTAL 8.8 mg/dL (8.8-10.5); CREATININE 1.11 mg/dL (0.60-1.30)
[2020-05-03 09:42] LABS: POTASSIUM 2.7 mmol/L (3.5-5.1)
[2020-05-03] MEDS ORDERED: SODIUM CHLORIDE 0.9% 500 ML IV ONE (10:37)
[2020-05-03] MEDS: POTASSIUM CHL 10 MEQ/WATER 50 ML IV PRN ×4 (10:41→17:16)
[2020-05-03] MEDS: ACETAMINOPHEN 325 MG TABLET PO PRN (10:54)
[2020-05-03 12:00] VITALS: BP 125/67
[2020-05-03 16:00] VITALS: BP 151/76
[2020-05-03] MEDS: LEVOFLOXACIN 750 MG/D5% WATER 150 ML IV SCH (18:40)
[2020-05-03 20:00] VITALS: BP 145/68
[2020-05-03] MEDS: ATORVASTATIN CALCIUM 40 MG TABLET PO SCH (20:51)
[2020-05-03] MEDS: SENNA 187 MG TABLET PO SCH (20:51)
[2020-05-04] VITALS: BP 142/70
[2020-05-04] MEDS: PROPOFOL 1000 MG/ISO-OSM 100 ML IV PRN ×2 (00:32→05:34)
[2020-05-04] MEDS: MethylPREDNISolone SOD SUCC 125 MG/2 ML VIAL IVP SCH ×4 (00:32→17:58)
[2020-05-04] MEDS: HEPARIN SODIUM,PORCINE 5,000 UNITS/ML VIAL SQ SCH ×3 (00:33→16:02)
[2020-05-04] MEDS: MetroNIDAZOLE 500 MG/NACL 100 ML IV SCH ×3 (00:50→16:50)
[2020-05-04] MEDS: ACETAMINOPHEN 325 MG TABLET PO PRN ×5 (00:57→19:39)
[2020-05-04 04:00] VITALS: BP 146/71
[2020-05-04] MEDS ORDERED: SODIUM CHLORIDE 0.9% 250 ML IV ONE (05:29)
[2020-05-04 06:14] LABS: CALCIUM, TOTAL 8.7 mg/dL (8.8-10.5); CREATININE 1.13 mg/dL (0.60-1.30); POTASSIUM 3.1 mmol/L (3.5-5.1)
[2020-05-04] MEDS: POTASSIUM CHL 10 MEQ/WATER 50 ML IV PRN ×6 (06:34→22:01)
[2020-05-04 08:00] VITALS: BP 175/81
[2020-05-04] MEDS: DOCUSATE SODIUM 100 MG CAPSULE PO SCH ×2 (08:12→19:39)
[2020-05-04] MEDS: FUROSEMIDE 40 MG TABLET PO SCH ×2 (08:12→20:23)
[2020-05-04] MEDS: GABAPENTIN 300 MG CAPSULE PO SCH ×3 (08:12→20:24)
[2020-05-04] MEDS: ASPIRIN 81 MG CHEWABLE TABLET PO SCH (08:13)
[2020-05-04] MEDS: FERROUS SULFATE 325 MG EC TABLET PO SCH (08:14)
[2020-05-04] MEDS: ASCORBIC ACID 500 MG TABLET PO SCH (08:14)
[2020-05-04] MEDS: PARoxetine HCL 10 MG TABLET PO SCH ×2 (08:14→20:23)
[2020-05-04] MEDS: CALCIUM OYSTER SHELL 250 MG-VIT D3 125 UNITS TABLET PO SCH (08:14)
[2020-05-04] MEDS: PANTOPRAZOLE SODIUM 40 MG DR TABLET PO SCH (08:14)
[2020-05-04 11:29] LABS: ABG A-A DIFF O2 130.1 mmHg (10-20.0); ABG BASE EXCESS 8.2 mmol/L (-2.0-3.0); ABG CARBOXYHEMOGLOBIN 0.1 % (0.0-1.5); ABG HCO3 30.9 mmol/L (22.0-26.0); ABG METHEMOGLOBIN 0.3 % (0.0-1.5); ABG OXYGEN CONTENT 16.5 mL/dL (15.0-23.0); ABG OXYGEN SATURATION 96.8 % (95.0-98.0); ABG OXYHEMOGLOBIN 96.4 % (94.0-100.0); ABG PCO2 50 mmHg (35-45); ABG PH 7.433 (7.35-7.450); ABG TOTAL HEMOGLOBIN 12.1 G/dL (12.0-18.0); PO2, ARTERIAL BG 97.6 mmHg (84.0-92.0); SOURCE, BLOOD GAS ARTERIAL; TEMPERATURE, FAHRENHEIT, BG 99.3 FAHREN (96.0-98.6)
[2020-05-04 11:30] LABS: CPAP, BG 5 cm H2O; O2 DEVICE,BLOOD GAS VENTILATOR (ROOM AIR); PRESSURE SUPPORT, BG 8 cm H2O; SITE, BLOOD GAS LFT RADIAL; SPONTANEOUS VT, BG 660 ml; VENT MODE, BG CPAP (ROOM AIR)
[2020-05-04 12:00] VITALS: BP 172/71
[2020-05-04] MEDS: HYDROmorphone 2 MG/ML VIAL IVP PRN ×2 (12:52→21:06)
[2020-05-04 16:00] VITALS: BP 146/91
[2020-05-04 16:59] LABS: MAGNESIUM 2.4 mg/dL (1.80-2.40); POTASSIUM 3.3 mmol/L (3.5-5.1)
[2020-05-04 17:19] LABS: HEMOGLOBIN A1C 5.7 % (3.8-5.6)
[2020-05-04] MEDS: LEVOFLOXACIN 750 MG/D5% WATER 150 ML IV SCH (17:58)
[2020-05-04] MEDS: AmLODIPine BESYLATE 10 MG TABLET PO SCH (18:40)
[2020-05-04 20:00] VITALS: BP 177/87
[2020-05-04] MEDS: ATORVASTATIN CALCIUM 40 MG TABLET PO SCH (20:23)
[2020-05-04] MEDS: SENNA 187 MG TABLET PO SCH (20:23)
[2020-05-05] VITALS (9 sets, daily range): BP systolic 155–188; BP diastolic 74–97
[2020-05-05] MEDS: HEPARIN SODIUM,PORCINE 5,000 UNITS/ML VIAL SQ SCH ×3 (00:41→16:07)
[2020-05-05] MEDS: MethylPREDNISolone SOD SUCC 40 MG/ML VIAL IVP SCH ×2 (00:41→05:27)
[2020-05-05] MEDS: HYDROmorphone 2 MG/ML VIAL IVP PRN (01:04)
[2020-05-05] MEDS: MetroNIDAZOLE 500 MG/NACL 100 ML IV SCH ×3 (01:25→16:07)
[2020-05-05] MEDS: ACETAMINOPHEN 325 MG TABLET PO PRN ×4 (02:42→21:27)
[2020-05-05] MEDS: POTASSIUM CHLORIDE 20 MEQ ER TABLET PO PRN ×2 (05:27→11:29)
[2020-05-05] MEDS: PANTOPRAZOLE SODIUM 40 MG DR TABLET PO SCH (08:00)
[2020-05-05] MEDS: AmLODIPine BESYLATE 10 MG TABLET PO SCH (08:00)
[2020-05-05] MEDS: CALCIUM OYSTER SHELL 250 MG-VIT D3 125 UNITS TABLET PO SCH (08:00)
[2020-05-05] MEDS: ASPIRIN 81 MG CHEWABLE TABLET PO SCH (08:00)
[2020-05-05] MEDS: GABAPENTIN 300 MG CAPSULE PO SCH ×3 (08:00→21:25)
[2020-05-05] MEDS: PredniSONE 10 MG TABLET PO SCH (08:00)
[2020-05-05] MEDS: FUROSEMIDE 40 MG TABLET PO SCH ×2 (08:00→21:25)
[2020-05-05] MEDS: DOCUSATE SODIUM 100 MG CAPSULE PO SCH ×2 (08:00→21:25)
[2020-05-05] MEDS: PARoxetine HCL 10 MG TABLET PO SCH ×2 (08:00→21:26)
[2020-05-05] MEDS ORDERED: HydrALAZINE HCL 20 MG/ML VIAL IVP PRN (09:30)
[2020-05-05] MEDS ORDERED: SODIUM CHLORIDE 0.9% 250 ML IV ONE (16:14)
[2020-05-05] MEDS: LEVOFLOXACIN 750 MG/D5% WATER 150 ML IV SCH (17:15)
[2020-05-05] MEDS: ATORVASTATIN CALCIUM 40 MG TABLET PO SCH (21:25)
[2020-05-05] MEDS: SENNA 187 MG TABLET PO SCH (21:25)
[2020-05-06 00:15] VITALS: BP 135/84
[2020-05-06] MEDS: MetroNIDAZOLE 500 MG/NACL 100 ML IV SCH ×2 (00:48→08:17)
[2020-05-06] MEDS: HEPARIN SODIUM,PORCINE 5,000 UNITS/ML VIAL SQ SCH ×2 (00:48→08:19)
[2020-05-06 05:09] VITALS: BP 133/74
[2020-05-06] MEDS: ACETAMINOPHEN 325 MG TABLET PO PRN (06:18)
[2020-05-06 07:14] VITALS: BP 131/65
[2020-05-06] MEDS: PANTOPRAZOLE SODIUM 40 MG DR TABLET PO SCH (08:18)
[2020-05-06] MEDS: GABAPENTIN 300 MG CAPSULE PO SCH (08:18)
[2020-05-06] MEDS: FUROSEMIDE 40 MG TABLET PO SCH (08:18)
[2020-05-06] MEDS: ASPIRIN 81 MG CHEWABLE TABLET PO SCH (08:18)
[2020-05-06] MEDS: AmLODIPine BESYLATE 10 MG TABLET PO SCH (08:18)
[2020-05-06] MEDS: PredniSONE 10 MG TABLET PO SCH (08:18)
[2020-05-06] MEDS: DOCUSATE SODIUM 100 MG CAPSULE PO SCH (08:18)
[2020-05-06] MEDS: CALCIUM OYSTER SHELL 250 MG-VIT D3 125 UNITS TABLET PO SCH (08:18)
[2020-05-06] MEDS: PARoxetine HCL 10 MG TABLET PO SCH (08:18)
[2020-05-06] MEDS ORDERED: AMLO-257 PO (09:23)
[2020-05-06 10:14] LABS: BASOPHILS % (AUTO) 0.3 % (0.0-2.0); EOSINOPHILS % (AUTO) 0.1 % (1.0-6.0); HEMATOCRIT 40.4 % (36-46); LYMPHOCYTES # (AUTO) 1.4 K/uL (1.0-4.8); LYMPHOCYTES % (AUTO) 15.6 % (22.0-44.0); MEAN CORPUSCULAR HGB CONC 32.1 G/dL (31.0-37.0); MEAN CORPUSCULAR VOLUME 87 fL (80-100); MONOCYTES # (AUTO) 0.6 K/uL (0.1-1.0); MONOCYTES % (AUTO) 6.4 % (2.0-9.0); NEUTROPHILS % (AUTO) 77.6 % (40.0-70.0); PLATELET COUNT (AUTO) 187 K/uL (150-450); RED BLOOD CELL COUNT(AUTO) 4.63 MIL/uL (4.00-5.20); RED CELL DISTRIBUTION WIDTH 15.3 % (11.5-14.5)
[2020-05-06 10:36] LABS: CALCIUM, TOTAL 8.1 mg/dL (8.8-10.5); CREATININE 1.07 mg/dL (0.60-1.30); POTASSIUM 3.4 mmol/L (3.5-5.1)
[2020-05-06 11:15] VITALS: BP 111/65
[2020-05-06] MEDS ORDERED: POTASSIUM CHLORIDE 20 MEQ ER TABLET PO ONE (14:15)
== END 2020-05-06 15:00 | disposition home or self-care (01) | DRG 811 ==
LOC: EMS 09:26 → ICU 16:15 → 5S 05-05 14:34
PROVIDERS: ADMIT Hospitalist; ATTEND Hospitalist
PROC: 5A1945Z Respiratory Ventilation, 24-96 Consecutive Hours (ICD-10-PCS; principal; 2020-05-01)
PROC: 0BH17EZ Insertion of Endotracheal Airway into Trachea, Via Natural or Artificial Opening (ICD-10-PCS; 2020-05-01)
DX: T88.6XXA Anaphylactic reaction due to adverse effect of correct drug or medicament properly administered, initial encounter (principal); J96.00 Acute respiratory failure, unspecified whether with hypoxia or hypercapnia; E78.5 Hyperlipidemia, unspecified; J38.4 Edema of larynx; I10 Essential (primary) hypertension; D64.9 Anemia, unspecified; F41.9 Anxiety disorder, unspecified; K59.00 Constipation, unspecified; E78.00 Pure hypercholesterolemia, unspecified; Z90.49 Acquired absence of other specified parts of digestive tract; Z88.8 Allergy status to other drugs, medicaments and biological substances; Z88.0 Allergy status to penicillin; Z68.41 Body mass index [BMI] 40.0-44.9, adult; M54.30 Sciatica, unspecified side; H52.00 Hypermetropia, unspecified eye; Z99.11 Dependence on respirator [ventilator] status; E66.01 Morbid (severe) obesity due to excess calories; F32.9 Major depressive disorder, single episode, unspecified; T50.995A Adverse effect of other drugs, medicaments and biological substances, initial encounter; Y92.89 Other specified places as the place of occurrence of the external cause; Z20.822 Contact with and (suspected) exposure to COVID-19; J69.0 Pneumonitis due to inhalation of food and vomit
CPT/HCPCS: 36600; 70450; 70490; 71275; 82805; 83036; 83735; 84132; 85379; 87081; 87426; 87804; 92610; 93005; 93306; 93971; 94002; 94003; 97116; 97161; 97530; 99291; A9575; G0378; J0171; J0330; J0360; J0456; J1170; J1200; J1644; J1940; J1956; J2704; J2920; J2930; J3370; J3480; J3490; J7040; J7050; J7060; 36415-L1; 36415-TC; 71045-TC; 80061-TC; 81003-TC; J7512; U0003; Z7610

== ENCOUNTER 2020-07-10 18:01 | Emergency (ER) | payer MEDICAID ==
[~2020-07-10] VITALS: Ht 160 cm; Wt 88.6 kg
[~2020-07-10 18:01] MED LIST changes: +AMLO-257 PO; -ASCO500 PO; -DEPOP150I IM; -FERR-89 PO; -FURO40 PO; -HYDR28.35 TP; -LORA10TA7 PO; -NITR0.4T50 SL
[2020-07-10] MEDS ORDERED: ONDANSETRON HCL 4 MG/2 ML VIAL IVP ONE (18:45)
[2020-07-10] MEDS ORDERED: KETOROLAC TROMETHAMINE 30 MG/ML VIAL IVP ONE (18:45)
[2020-07-10] MEDS ORDERED: METHOCARBAMOL 100 MG/ML 10 ML VIAL IVP ONE (18:45)
[2020-07-10 18:55] LABS: EOSINOPHILS % (AUTO) 2.4 % (1.0-6.0); HEMATOCRIT 33.5 % (36-46); HEMOGLOBIN 10.9 g/dL (12.0-16.0); LYMPHOCYTES # (AUTO) 2.7 K/uL (1.0-4.8); LYMPHOCYTES % (AUTO) 28.7 % (22.0-44.0); MEAN CORPUSCULAR HEMOGLOBIN 27.5 pg (26.0-34.0); MEAN CORPUSCULAR HGB CONC 32.5 G/dL (31.0-37.0); MEAN CORPUSCULAR VOLUME 85 fL (80-100); MONOCYTES # (AUTO) 0.5 K/uL (0.1-1.0); MONOCYTES % (AUTO) 5.7 % (2.0-9.0); NEUTROPHILS # (AUTO) 5.8 K/uL (1.8-7.7); NEUTROPHILS % (AUTO) 62.2 % (40.0-70.0); PLATELET COUNT (AUTO) 227 K/uL (150-450); RED BLOOD CELL COUNT(AUTO) 3.95 MIL/uL (4.00-5.20); RED CELL DISTRIBUTION WIDTH 15.8 % (11.5-14.5)
[2020-07-10 19:05] LABS: CREATININE 1.66 mg/dL (0.60-1.30); POTASSIUM 3.7 mmol/L (3.5-5.1)
[2020-07-10 19:13] LABS: ALBUMIN 3.9 g/dL (3.4-5.0); BILIRUBIN,TOTAL 0.5 mg/dL (0.1-1.0); TOTAL PROTEIN, SERUM 6.9 g/dL (6.4-8.2)
[2020-07-10] MEDS ORDERED: SODIUM CHLORIDE 0.9% 1,000 ML IV ONE (21:15)
[2020-07-10 23:30] VITALS: BP 132/74
== END 2020-07-11 00:05 | disposition home or self-care (01) ==
LOC: EMS 18:01
DX: S39.012A Strain of muscle, fascia and tendon of lower back, initial encounter (principal); E86.0 Dehydration; F41.9 Anxiety disorder, unspecified; E78.00 Pure hypercholesterolemia, unspecified; Z90.89 Acquired absence of other organs; Z88.5 Allergy status to narcotic agent; Z88.0 Allergy status to penicillin; Z91.041 Radiographic dye allergy status; X58.XXXA Exposure to other specified factors, initial encounter; Y93.89 Activity, other specified; Y92.89 Other specified places as the place of occurrence of the external cause; Y99.8 Other external cause status
CPT/HCPCS: 36415; 74176; 80053; 81002; 83690; 84484; 85025; 93005; 96361; 96374; 96375; 99285; J1885; J2405; J2800; J7030

== ENCOUNTER 2020-10-05 16:49 | Emergency (ER) | payer MEDICAID ==
[~2020-10-05] VITALS: Ht 160 cm; Wt 100.0 kg
[~2020-10-05 16:49] MED LIST changes: -ACET-66 PO; -AMLO-257 PO; -BACL5TAB PO; -CALC1TAB97 PO; +DIPH25CA85 PO; +ESOM20CA31 PO; +LISI-894 PO; +LORA10TA7 PO; +METO25 PO; +PARO-38 PO; -PARO10TA89 PO; +PROP40TA7 PO; -SENN8.6T90 PO; +[UNRECOGNIZED DRUG - OTHER] PO
[2020-10-05 16:51] VITALS: BP 162/88
[2020-10-05] MEDS ORDERED: DEXAMETHASONE SOD PHOS 4 MG/ML 5 ML VIAL IVP ONE (18:30)
[2020-10-05] MEDS ORDERED: ACETAMINOPHEN 500 MG TABLET PO ONE (18:30)
[2020-10-05] MEDS ORDERED: METOCLOPRAMIDE HCL 5 MG/ML 2 ML VIAL IVP ONE (18:30)
[2020-10-05] MEDS ORDERED: SODIUM CHLORIDE 0.9% 1,000 ML IV ONE (18:30)
[2020-10-05] MEDS ORDERED: DiphenhydrAMINE HCL 50 MG/ML VIAL IVP ONE (18:30)
== END 2020-10-05 20:32 | disposition left against medical advice (07) ==
LOC: EMS 16:52
DX: I10 Essential (primary) hypertension (principal); F41.9 Anxiety disorder, unspecified; F32.9 Major depressive disorder, single episode, unspecified; K21.9 Gastro-esophageal reflux disease without esophagitis; E78.00 Pure hypercholesterolemia, unspecified; Z90.89 Acquired absence of other organs; Z88.5 Allergy status to narcotic agent; Z88.0 Allergy status to penicillin; Z91.041 Radiographic dye allergy status; Z79.899 Other long term (current) drug therapy
CPT/HCPCS: 93005; 99283

== ENCOUNTER 2020-11-30 11:18 | Emergency (ER) | payer MEDICAID ==
[~2020-11-30] VITALS: Ht 167.6 cm; Wt 110.0 kg
[2020-11-30] MEDS ORDERED: KETOROLAC TROMETHAMINE 30 MG/ML VIAL IVP ONE (12:00)
[2020-11-30] MEDS ORDERED: ONDANSETRON HCL 4 MG/2 ML VIAL IVP ONE (12:00)
[2020-11-30] MEDS ORDERED: SODIUM CHLORIDE 0.9% 1,000 ML IV ONE (12:00)
[2020-11-30 12:39] LABS: BASOPHILS % (AUTO) 0.3 % (0.0-2.0); EOSINOPHILS % (AUTO) 2.6 % (1.0-6.0); HEMATOCRIT 37.2 % (36-46); HEMOGLOBIN 12.1 g/dL (12.0-16.0); LYMPHOCYTES # (AUTO) 2.4 K/uL (1.0-4.8); LYMPHOCYTES % (AUTO) 23.9 % (22.0-44.0); MEAN CORPUSCULAR HEMOGLOBIN 27.3 pg (26.0-34.0); MEAN CORPUSCULAR HGB CONC 32.6 G/dL (31.0-37.0); MEAN CORPUSCULAR VOLUME 84 fL (80-100); MONOCYTES # (AUTO) 0.8 K/uL (0.1-1.0); MONOCYTES % (AUTO) 7.9 % (2.0-9.0); NEUTROPHILS # (AUTO) 6.5 K/uL (1.8-7.7); NEUTROPHILS % (AUTO) 65.3 % (40.0-70.0); PLATELET COUNT (AUTO) 230 K/uL (150-450); RED BLOOD CELL COUNT(AUTO) 4.45 MIL/uL (4.00-5.20); RED CELL DISTRIBUTION WIDTH 15.9 % (11.5-14.5)
[2020-11-30] MEDS ORDERED: IBUPROFEN 600 MG TABLET PO ONE (12:45)
[2020-11-30] MEDS ORDERED: ONDANSETRON HCL 4 MG TABLET PO ONE (12:45)
[2020-11-30 12:49] LABS: CALCIUM, TOTAL 8.9 mg/dL (8.8-10.5); CREATININE 1.08 mg/dL (0.60-1.30); POTASSIUM 3.2 mmol/L (3.5-5.1)
[2020-11-30 13:07] LABS: APPEARANCE,URINE CLEAR (CLEAR); BILIRUBIN,URINE NEGATIVE (NEGATIVE); GLUCOSE, URINE (UA) NEGATIVE (NEGATIVE); KETONES,URINE NEGATIVE (NEGATIVE); LEUKOCYTE ESTERASE ,URINE NEGATIVE (NEGATIVE); NITRATE,URINE NEGATIVE (NEGATIVE); OCCULT BLOOD,URINE NEGATIVE (NEGATIVE); PH,URINE 6.5 (5.0-8.0); PROTEIN,URINE NEGATIVE (NEGATIVE); UROBILINOGEN,URINE 0.2 mg/dL (<=1.0)
[2020-11-30 13:11] LABS: BACTERIA,URINE None Seen /HPF (None Seen); RBC,URINE None Seen /HPF (0-2); WBC,URINE None Seen /HPF (0-5)
[2020-11-30 13:13] LABS: COVID AG,FIA SOURCE NASOPHARYNGEAL
[2020-11-30 13:57] VITALS: BP 164/90
== END 2020-11-30 14:01 | disposition home or self-care (01) ==
LOC: EMS 11:27
DX: R10.9 Unspecified abdominal pain (principal); M54.9 Dorsalgia, unspecified; R30.0 Dysuria; F41.9 Anxiety disorder, unspecified; F32.9 Major depressive disorder, single episode, unspecified; K21.9 Gastro-esophageal reflux disease without esophagitis; E78.00 Pure hypercholesterolemia, unspecified; I10 Essential (primary) hypertension; Z20.822 Contact with and (suspected) exposure to COVID-19; Z90.89 Acquired absence of other organs; Z79.899 Other long term (current) drug therapy; Z88.5 Allergy status to narcotic agent; Z88.0 Allergy status to penicillin; Z91.041 Radiographic dye allergy status
CPT/HCPCS: 36415; 74176; 80048; 81001; 85025; 87426; 99284; Q0162

== ENCOUNTER 2021-03-29 16:54 | Emergency (ER) | payer MEDICAID ==
[~2021-03-29] VITALS: Ht 167.6 cm; Wt 102.3 kg
[2021-03-29] MEDS ORDERED: LIDOCAINE 5% TRANSDERMAL PATCH TD ONE (17:30)
[2021-03-29] MEDS ORDERED: CYCLOBENZAPRINE HCL 10 MG TABLET PO ONE (17:30)
[2021-03-29] MEDS ORDERED: KETOROLAC TROMETHAMINE 60 MG/2 ML VIAL IM ONE (17:30)
[2021-03-29 18:00] VITALS: BP 134/102
[2021-03-29] MEDS ORDERED: CYCL10TA17 PO (18:12)
[2021-03-29] MEDS ORDERED: IBUP-2070 PO (18:12)
== END 2021-03-29 18:56 | disposition home or self-care (01) ==
LOC: EMS 16:56
DX: S39.012A Strain of muscle, fascia and tendon of lower back, initial encounter (principal); I10 Essential (primary) hypertension; E78.00 Pure hypercholesterolemia, unspecified; K21.9 Gastro-esophageal reflux disease without esophagitis; F32.9 Major depressive disorder, single episode, unspecified; E03.9 Hypothyroidism, unspecified; Z88.0 Allergy status to penicillin; Z88.1 Allergy status to other antibiotic agents; Z88.5 Allergy status to narcotic agent; Z91.041 Radiographic dye allergy status; Z79.899 Other long term (current) drug therapy; X50.9XXA Other and unspecified overexertion or strenuous movements or postures, initial encounter; Y93.89 Activity, other specified; Y92.89 Other specified places as the place of occurrence of the external cause; Y99.8 Other external cause status
CPT/HCPCS: 96372; 99283; J1885

== ENCOUNTER 2021-04-05 19:52 | Emergency (ER) | payer MEDICAID ==
[~2021-04-05] VITALS: Ht 157.5 cm; Wt 125.5 kg
[~2021-04-05 19:52] MED LIST changes: +CYCL10TA17 PO; +IBUP-2070 PO
[2021-04-05 21:18] LABS: APPEARANCE,URINE CLEAR (CLEAR); BILIRUBIN,URINE NEGATIVE (NEGATIVE); GLUCOSE, URINE (UA) NEGATIVE (NEGATIVE); KETONES,URINE NEGATIVE (NEGATIVE); LEUKOCYTE ESTERASE ,URINE NEGATIVE (NEGATIVE); NITRATE,URINE NEGATIVE (NEGATIVE); OCCULT BLOOD,URINE NEGATIVE (NEGATIVE); PROTEIN,URINE NEGATIVE (NEGATIVE); UROBILINOGEN,URINE 0.2 mg/dL (<=1.0)
[2021-04-05 22:37] LABS: BASOPHILS % (AUTO) 0.4 % (0.0-2.0); EOSINOPHILS % (AUTO) 0 % (1.0-6.0); HEMATOCRIT 36.3 % (36-46); HEMOGLOBIN 12.2 g/dL (12.0-16.0); LYMPHOCYTES # (AUTO) 0.7 K/uL (1.0-4.8); LYMPHOCYTES % (AUTO) 7.9 % (22.0-44.0); MEAN CORPUSCULAR HEMOGLOBIN 27.4 pg (26.0-34.0); MEAN CORPUSCULAR HGB CONC 33.6 G/dL (31.0-37.0); MEAN CORPUSCULAR VOLUME 82 fL (80-100); MONOCYTES # (AUTO) 0.1 K/uL (0.1-1.0); MONOCYTES % (AUTO) 0.8 % (2.0-9.0); NEUTROPHILS # (AUTO) 7.9 K/uL (1.8-7.7); PLATELET COUNT (AUTO) 211 K/uL (150-450); RED BLOOD CELL COUNT(AUTO) 4.45 MIL/uL (4.00-5.20); RED CELL DISTRIBUTION WIDTH 15.4 % (11.5-14.5)
[2021-04-05 22:41] LABS: NEUTROPHILS % (AUTO) 90.9 % (40.0-70.0)
[2021-04-05 22:55] LABS: ANION GAP 12 mmol/L (8-16); CALCIUM, TOTAL 9.3 mg/dL (8.8-10.5); CARBON DIOXIDE 25 mmol/L (22-29); CHLORIDE 102 mmol/L (98-107); CREATININE 1.42 mg/dL (0.60-1.30); GLOMERULAR FILTR. RATE CALC 39 mL/min (>60); GLUCOSE,RANDOM 195 mg/dL (70-110); POTASSIUM 4.1 mmol/L (3.5-5.1); SODIUM SERUM 139 mmol/L (136-145); UREA NITROGEN, BLOOD 24 mg/dL (7-18)
[2021-04-05 23:09] LABS: ALANINE AMINOTRANSFERASE 63 U/L (12-78); ALBUMIN 3.3 g/dL (3.4-5.0); ALKALINE PHOSPHATASE 115 U/L (46-116); ASPARTATE AMINOTRANSFERASE 33 U/L (15-37); BILIRUBIN,TOTAL 0.3 mg/dL (0.1-1.0); HCG,QUANTITATIVE < 1 mIU/mL (0-6); PHOSPHORUS 3.6 mg/dL (2.5-4.9); TOTAL PROTEIN, SERUM 7.2 g/dL (6.4-8.2)
[2021-04-05] MEDS ORDERED: ACETAMINOPHEN 500 MG TABLET PO ONE (23:15)
[2021-04-05] MEDS ORDERED: SODIUM CHLORIDE 0.9% 1,000 ML IV ONE (23:15)
[2021-04-05] MEDS ORDERED: LIDOCAINE 5% TRANSDERMAL PATCH TD ONE (23:15)
[2021-04-05 23:26] LABS: CREATINE KINASE, TOTAL ONLY 47 U/L (26-192)
[2021-04-05 23:29] LABS: B-TYPE NATRIURETIC PEPTIDE 12 pg/mL (0-100)
[2021-04-06 02:02] VITALS: BP 129/73
== END 2021-04-06 02:10 | disposition home or self-care (01) ==
LOC: EMS 19:53
DX: R20.2 Paresthesia of skin (principal); I10 Essential (primary) hypertension; E78.00 Pure hypercholesterolemia, unspecified; E03.9 Hypothyroidism, unspecified; K21.9 Gastro-esophageal reflux disease without esophagitis; F32.9 Major depressive disorder, single episode, unspecified; F41.9 Anxiety disorder, unspecified; Z88.1 Allergy status to other antibiotic agents; Z91.041 Radiographic dye allergy status; Z88.5 Allergy status to narcotic agent; Z79.899 Other long term (current) drug therapy
CPT/HCPCS: 70450; 71045; 80053; 81003; 82550; 83735; 83880; 84100; 84484; 84702; 85025; 93005; 96360; 96361; 99285; G0480; 36415-L1; 36415-TC

== ENCOUNTER 2021-04-19 15:19 | Emergency (ER) | payer MEDICAID ==
[~2021-04-19] VITALS: Ht 157.5 cm; Wt 122.3 kg
[2021-04-19] MEDS ORDERED: HYDR25TA84 PO (15:37)
[2021-04-19] MEDS ORDERED: ISOS30TA92 PO (15:37)
[2021-04-19] MEDS ORDERED: CHL25 PO (15:37)
[2021-04-19] MEDS ORDERED: AMLO-257 PO (15:37)
[2021-04-19] MEDS ORDERED: ESOM20CA31 PO (15:37)
[2021-04-19] MEDS ORDERED: ASCO500 PO (15:37)
[2021-04-19] MEDS ORDERED: BACL10TA PO (15:37)
[2021-04-19 16:21] LABS: EOSINOPHILS % (AUTO) 0.5 % (1.0-6.0); HEMOGLOBIN 11.7 g/dL (12.0-16.0); LYMPHOCYTES # (AUTO) 2.3 K/uL (1.0-4.8); LYMPHOCYTES % (AUTO) 22.2 % (22.0-44.0); MEAN CORPUSCULAR HEMOGLOBIN 27.3 pg (26.0-34.0); MEAN CORPUSCULAR HGB CONC 33.4 G/dL (31.0-37.0); MEAN CORPUSCULAR VOLUME 82 fL (80-100); MONOCYTES # (AUTO) 0.7 K/uL (0.1-1.0); MONOCYTES % (AUTO) 7.1 % (2.0-9.0); NEUTROPHILS % (AUTO) 69.2 % (40.0-70.0); PLATELET COUNT (AUTO) 242 K/uL (150-450); RED BLOOD CELL COUNT(AUTO) 4.27 MIL/uL (4.00-5.20); RED CELL DISTRIBUTION WIDTH 15.5 % (11.5-14.5)
[2021-04-19 16:30] LABS: CALCIUM, TOTAL 9.1 mg/dL (8.8-10.5); CREATININE 1.02 mg/dL (0.60-1.30); POTASSIUM 3.9 mmol/L (3.5-5.1)
[2021-04-19 16:36] LABS: ALBUMIN 3.3 g/dL (3.4-5.0); BILIRUBIN,TOTAL 0.3 mg/dL (0.1-1.0); TOTAL PROTEIN, SERUM 6.9 g/dL (6.4-8.2)
[2021-04-19] MEDS ORDERED: HydrALAZINE HCL 20 MG/ML VIAL IVP ONE (16:45)
[2021-04-19 17:16] LABS: APPEARANCE,URINE CLOUDY (CLEAR); BILIRUBIN,URINE NEGATIVE (NEGATIVE); GLUCOSE, URINE (UA) NEGATIVE (NEGATIVE); KETONES,URINE NEGATIVE (NEGATIVE); LEUKOCYTE ESTERASE ,URINE NEGATIVE (NEGATIVE); NITRATE,URINE NEGATIVE (NEGATIVE); OCCULT BLOOD,URINE NEGATIVE (NEGATIVE); PROTEIN,URINE NEGATIVE (NEGATIVE)
[2021-04-19 17:31] LABS: BACTERIA,URINE None Seen /HPF (None Seen); RBC,URINE None Seen /HPF (0-2); SQUAMOUS EPITHELIAL CELL,UR Moderate /LPF (None Seen); WBC,URINE None Seen /HPF (0-5)
[2021-04-19 20:00] VITALS: BP 156/75
[2021-04-19] MEDS ORDERED: KETOROLAC TROMETHAMINE 30 MG/ML VIAL IM ONE (20:15)
[2021-04-19 20:20] LABS: AMPHET/METH SCREEN,URINE NEGATIVE (NEGATIVE); BARBITURATE SCREEN, URINE NEGATIVE (NEGATIVE); BENZODIAZEPINES SCREEN,URINE NEGATIVE (NEGATIVE); CANNABINOID SCREEN,URINE NEGATIVE (NEGATIVE); COCAINE SCREEN,URINE NEGATIVE (NEGATIVE); METHADONE SCREEN, URINE NEGATIVE (NEGATIVE); OPIATE SCREEN,URINE POSITIVE (NEGATIVE)
[2021-04-19 20:23] LABS: PHENCYCLIDINE SCREEN,URINE NEGATIVE (NEGATIVE)
== END 2021-04-19 20:50 | disposition home or self-care (01) ==
LOC: EMS 15:24
DX: G89.29 Other chronic pain (principal); M54.50 Low back pain, unspecified; I10 Essential (primary) hypertension; F41.9 Anxiety disorder, unspecified; F32.9 Major depressive disorder, single episode, unspecified; K21.9 Gastro-esophageal reflux disease without esophagitis; E78.00 Pure hypercholesterolemia, unspecified; Z90.89 Acquired absence of other organs; Z79.899 Other long term (current) drug therapy; Z88.5 Allergy status to narcotic agent; Z88.0 Allergy status to penicillin; Z91.041 Radiographic dye allergy status
CPT/HCPCS: 36415; 80053; 80307; 81001; 85025; 93005; 96361; 96374; 99285; J0360; J1885

== ENCOUNTER 2021-06-08 15:51 | Emergency (ER) | payer MEDICAID ==
[~2021-06-08] VITALS: Ht 157.5 cm; Wt 115.5 kg
[~2021-06-08 15:51] MED LIST changes: +AMLO-257 PO; +ASCO500 PO; +BACL10TA PO; +CHL25 PO; +CYCL-448 PO; -CYCL10TA17 PO; -DIPH25CA85 PO; +HYDR25TA84 PO; -IBUP-2070 PO; +ISOS30TA92 PO; -PROP40TA7 PO; -[UNRECOGNIZED DRUG - OTHER] PO
[2021-06-08] MEDS ORDERED: KETOROLAC TROMETHAMINE 60 MG/2 ML VIAL IM ONE (17:30)
[2021-06-08] MEDS ORDERED: ARIP5TAB37 PO (17:39)
[2021-06-08] MEDS ORDERED: DIPH50CA35 PO (17:39)
[2021-06-08] MEDS ORDERED: LITH300C3 PO (17:39)
[2021-06-08] MEDS ORDERED: FLUT220HFA IH (17:39)
[2021-06-08] MEDS ORDERED: ISOS60TA77 PO (17:39)
[2021-06-08] MEDS ORDERED: NORT10CA2 PO (17:39)
[2021-06-08] MEDS ORDERED: AMLO-258 PO (17:39)
[2021-06-08] MEDS ORDERED: MORPHINE SULFATE 4 MG/ML SYRINGE IM ONE (18:15)
[2021-06-08 19:08] LABS: APPEARANCE,URINE CLEAR (CLEAR); BILIRUBIN,URINE NEGATIVE (NEGATIVE); GLUCOSE, URINE (UA) NEGATIVE (NEGATIVE); KETONES,URINE NEGATIVE (NEGATIVE); LEUKOCYTE ESTERASE ,URINE NEGATIVE (NEGATIVE); NITRATE,URINE NEGATIVE (NEGATIVE); OCCULT BLOOD,URINE NEGATIVE (NEGATIVE); PROTEIN,URINE NEGATIVE (NEGATIVE); SPECIFIC GRAVITIY, URINE 1.024 (1.003-1.030)
[2021-06-08] MEDS ORDERED: IBUP-2077 PO (19:21)
[2021-06-08 19:30] VITALS: BP 134/75
== END 2021-06-08 19:34 | disposition home or self-care (01) ==
LOC: EMS 15:51
DX: M54.50 Low back pain, unspecified (principal); G89.29 Other chronic pain; F41.9 Anxiety disorder, unspecified; F32.A Depression, unspecified; E78.00 Pure hypercholesterolemia, unspecified; I10 Essential (primary) hypertension; E03.9 Hypothyroidism, unspecified; H52.209 Unspecified astigmatism, unspecified eye; I87.2 Venous insufficiency (chronic) (peripheral); H52.00 Hypermetropia, unspecified eye; Z90.49 Acquired absence of other specified parts of digestive tract; Z86.2 Personal history of diseases of the blood and blood-forming organs and certain disorders involving the immune mechanism; Z87.19 Personal history of other diseases of the digestive system; Z86.69 Personal history of other diseases of the nervous system and sense organs; Z98.890 Other specified postprocedural states; Z91.041 Radiographic dye allergy status; Z88.0 Allergy status to penicillin; Z88.1 Allergy status to other antibiotic agents; Z88.8 Allergy status to other drugs, medicaments and biological substances
CPT/HCPCS: 81003; 96372; 99284; J1885; J2270

== ENCOUNTER 2021-10-19 14:35 | Emergency (ER) | payer SELFPAY ==
[~2021-10-19 14:35] MED LIST changes: -AMLO-257 PO; +AMLO-258 PO; +ARIP5TAB37 PO; -CYCL-448 PO; +DIPH50CA35 PO; +FLUT220HFA IH; -HYDR25TA84 PO; +IBUP-2077 PO; -ISOS30TA92 PO; +ISOS60TA77 PO; +LITH300C3 PO; +NORT10CA2 PO
== END 2021-10-19 16:24 | disposition left against medical advice (07) ==
LOC: EMS 14:35
DX: M19.90 Unspecified osteoarthritis, unspecified site (principal); Z53.21 Procedure and treatment not carried out due to patient leaving prior to being seen by health care provider

== ENCOUNTER 2021-12-03 15:58 | Emergency (ER) | payer OTHER ==
[~2021-12-03] VITALS: Ht 157.5 cm; Wt 119.0 kg
[2021-12-03 16:52] LABS: BASOPHILS % (AUTO) 1.2 % (0.0-2.0); EOSINOPHILS % (AUTO) 2.9 % (1.0-6.0); HEMATOCRIT 32.4 % (36-46); HEMOGLOBIN 10.5 g/dL (12.0-16.0); LYMPHOCYTES # (AUTO) 1.8 K/uL (1.0-4.8); LYMPHOCYTES % (AUTO) 28.1 % (22.0-44.0); MEAN CORPUSCULAR HEMOGLOBIN 27.4 pg (26.0-34.0); MEAN CORPUSCULAR HGB CONC 32.4 G/dL (31.0-37.0); MEAN CORPUSCULAR VOLUME 85 fL (80-100); MONOCYTES # (AUTO) 0.4 K/uL (0.1-1.0); MONOCYTES % (AUTO) 5.7 % (2.0-9.0); NEUTROPHILS % (AUTO) 62.1 % (40.0-70.0); PLATELET COUNT (AUTO) 225 K/uL (150-450); RED BLOOD CELL COUNT(AUTO) 3.82 MIL/uL (4.00-5.20); RED CELL DISTRIBUTION WIDTH 15.3 % (11.5-14.5)
[2021-12-03 17:01] LABS: ANION GAP 6 mmol/L (8-16); CALCIUM, TOTAL 9.2 mg/dL (8.8-10.5); CARBON DIOXIDE 30 mmol/L (22-29); CHLORIDE 104 mmol/L (98-107); GLOMERULAR FILTR. RATE CALC 34 mL/min (>60); GLUCOSE,RANDOM 121 mg/dL (70-110); POTASSIUM 3.7 mmol/L (3.5-5.1); SODIUM SERUM 140 mmol/L (136-145); UREA NITROGEN, BLOOD 20 mg/dL (7-18)
[2021-12-03 17:07] LABS: ALANINE AMINOTRANSFERASE 33 U/L (12-78); ALBUMIN 3.7 g/dL (3.4-5.0); ALKALINE PHOSPHATASE 104 U/L (46-116); ASPARTATE AMINOTRANSFERASE 24 U/L (15-37); BILIRUBIN,TOTAL 0.5 mg/dL (0.1-1.0); TOTAL PROTEIN, SERUM 6.7 g/dL (6.4-8.2)
[2021-12-03 17:11] LABS: LITHIUM < 0.20 mmol/L (0.60-1.20)
[2021-12-03] MEDS ORDERED: ACETAMINOPHEN 500 MG TABLET PO ONE (20:00)
[2021-12-03 20:07] LABS: COVID AG,FIA SOURCE NASAL SWAB
[2021-12-03 20:42] LABS: INFLUENZA TYPE A NEGATIVE FOR TYPE A (NEGATIVE); INFLUENZA TYPE B NEGATIVE FOR TYPE B (NEGATIVE)
[2021-12-03 21:47] VITALS: BP 119/66
== END 2021-12-03 21:50 | disposition home or self-care (01) ==
LOC: EMS 16:09
DX: B34.9 Viral infection, unspecified (principal); M79.10 Myalgia, unspecified site; F41.9 Anxiety disorder, unspecified; F32.9 Major depressive disorder, single episode, unspecified; K21.9 Gastro-esophageal reflux disease without esophagitis; E78.00 Pure hypercholesterolemia, unspecified; I10 Essential (primary) hypertension; E03.9 Hypothyroidism, unspecified; H52.209 Unspecified astigmatism, unspecified eye; Z90.49 Acquired absence of other specified parts of digestive tract; Z98.890 Other specified postprocedural states; Z20.822 Contact with and (suspected) exposure to COVID-19; Z88.0 Allergy status to penicillin; Z88.5 Allergy status to narcotic agent; Z88.1 Allergy status to other antibiotic agents; Z91.040 Latex allergy status
CPT/HCPCS: 71045; 80053; 80178; 84484; 85025; 87804; 93005; 99285; 36415-L1; 36415-TC

== ENCOUNTER 2022-05-01 12:33 | Emergency (ER) | payer OTHER ==
[~2022-05-01] VITALS: Ht 160 cm; Wt 97.7 kg
[2022-05-01] MEDS ORDERED: CELE100 PO (12:44)
[2022-05-01] MEDS ORDERED: SUMA25TA9 PO (12:44)
[2022-05-01 15:18] LABS: COVID AG,FIA SOURCE NASAL SWAB
[2022-05-01 15:47] LABS: INFLUENZA TYPE A NEGATIVE FOR TYPE A (NEGATIVE); INFLUENZA TYPE B NEGATIVE FOR TYPE B (NEGATIVE)
[2022-05-01 16:04] LABS: EOSINOPHILS % (AUTO) 0.2 % (1.0-6.0); HEMATOCRIT 34.9 % (36-46); HEMOGLOBIN 11.1 g/dL (12.0-16.0); LYMPHOCYTES % (AUTO) 18.9 % (22.0-44.0); MEAN CORPUSCULAR HEMOGLOBIN 26.6 pg (26.0-34.0); MEAN CORPUSCULAR HGB CONC 31.9 G/dL (31.0-37.0); MEAN CORPUSCULAR VOLUME 83 fL (80-100); MONOCYTES # (AUTO) 0.5 K/uL (0.1-1.0); MONOCYTES % (AUTO) 9.8 % (2.0-9.0); NEUTROPHILS # (AUTO) 3.9 K/uL (1.8-7.7); NEUTROPHILS % (AUTO) 70.1 % (40.0-70.0); PLATELET COUNT (AUTO) 202 K/uL (150-450); RED BLOOD CELL COUNT(AUTO) 4.19 MIL/uL (4.00-5.20); RED CELL DISTRIBUTION WIDTH 15.3 % (11.5-14.5)
[2022-05-01 16:18] LABS: ALBUMIN 3.3 g/dL (3.4-5.0); BILIRUBIN,TOTAL 0.4 mg/dL (0.1-1.0); CALCIUM, TOTAL 8.8 mg/dL (8.8-10.5); CREATININE 1.05 mg/dL (0.60-1.30); TOTAL PROTEIN, SERUM 6.8 g/dL (6.4-8.2)
[2022-05-01 16:19] LABS: POTASSIUM 2.7 mmol/L (3.5-5.1)
[2022-05-01] MEDS ORDERED: POTASSIUM CHLORIDE 20 MEQ ER TABLET PO ONE (16:30)
[2022-05-01 17:33] VITALS: BP 121/69
[2022-05-01] MEDS ORDERED: ONDANSETRON HCL 4 MG/2 ML VIAL IVP ONE (17:45)
[2022-05-01] MEDS ORDERED: ONDA-104 PO (19:46)
== END 2022-05-01 18:23 | disposition home or self-care (01) ==
LOC: EMS 12:33
DX: K52.9 Noninfective gastroenteritis and colitis, unspecified (principal); F41.9 Anxiety disorder, unspecified; K59.00 Constipation, unspecified; F32.A Depression, unspecified; K21.9 Gastro-esophageal reflux disease without esophagitis; E78.00 Pure hypercholesterolemia, unspecified; I10 Essential (primary) hypertension; E03.9 Hypothyroidism, unspecified; Z90.49 Acquired absence of other specified parts of digestive tract; Z20.822 Contact with and (suspected) exposure to COVID-19; Z98.890 Other specified postprocedural states; Z88.0 Allergy status to penicillin; Z88.5 Allergy status to narcotic agent; Z88.6 Allergy status to analgesic agent; Z91.040 Latex allergy status
CPT/HCPCS: 99285; 96374; 87426; 80053; 83690; 83880; 84484; 85025; 87804; 36415; 93005; J2405

== ENCOUNTER 2022-06-03 10:40 | Emergency (ER) | payer OTHER ==
[~2022-06-03] VITALS: Ht 165.1 cm; Wt 100.0 kg
[~2022-06-03 10:40] MED LIST changes: -ASCO500 PO; -BACL10TA PO; +CELE100 PO; +ONDA-104 PO; +SUMA25TA9 PO
[2022-06-03] MEDS ORDERED: LISI-892 PO (10:49)
[2022-06-03] MEDS ORDERED: METHOCARBAMOL 500 MG TABLET PO ONE (11:15)
[2022-06-03] MEDS ORDERED: KETOROLAC TROMETHAMINE 60 MG/2 ML VIAL IM ONE (11:15)
[2022-06-03 13:10] VITALS: BP 119/63
== END 2022-06-03 13:25 | disposition home or self-care (01) ==
LOC: EMS 10:47
DX: G89.29 Other chronic pain (principal); M54.9 Dorsalgia, unspecified; F41.9 Anxiety disorder, unspecified; F32.A Depression, unspecified; E78.00 Pure hypercholesterolemia, unspecified; I10 Essential (primary) hypertension; E03.9 Hypothyroidism, unspecified; Z90.49 Acquired absence of other specified parts of digestive tract; Z98.890 Other specified postprocedural states
CPT/HCPCS: 99283; 96372; J1885

== ENCOUNTER 2022-09-23 12:07 | Emergency (ER) | payer OTHER ==
[~2022-09-23] VITALS: Ht 160 cm; Wt 109.1 kg
[~2022-09-23 12:07] MED LIST changes: -ATOR40TA28 PO; +FLUT12AE18 IH; -FLUT220HFA IH; +LISI-892 PO; +SUMA25TA15 PO; -SUMA25TA9 PO
[2022-09-23 12:11] VITALS: TEMP 98.7
[2022-09-23] MEDS ORDERED: ACETAMINOPHEN 500 MG TABLET PO ONE (13:15)
[2022-09-23] MEDS ORDERED: IBUPROFEN 600 MG TABLET PO ONE (13:15)
[2022-09-23 14:55] VITALS: BP 123/81; PULSE 60; RESP 18
== END 2022-09-23 15:05 | disposition home or self-care (01) ==
LOC: EMS 12:23
DX: S93.401A Sprain of unspecified ligament of right ankle, initial encounter (principal); F41.9 Anxiety disorder, unspecified; F32.A Depression, unspecified; E78.00 Pure hypercholesterolemia, unspecified; I10 Essential (primary) hypertension; E03.9 Hypothyroidism, unspecified; Z90.49 Acquired absence of other specified parts of digestive tract; Z98.890 Other specified postprocedural states; Z91.040 Latex allergy status; Z88.5 Allergy status to narcotic agent; Z88.0 Allergy status to penicillin; W01.0XXA Fall on same level from slipping, tripping and stumbling without subsequent striking against object, initial encounter; Y93.01 Activity, walking, marching and hiking; Y92.89 Other specified places as the place of occurrence of the external cause; Y99.8 Other external cause status
CPT/HCPCS: 72125; 72128; 72131; 72170; 99284

== ENCOUNTER 2023-08-05 12:16 | Emergency (ER) | payer OTHER ==
[~2023-08-05] VITALS: Ht 160 cm; Wt 107.0 kg
[~2023-08-05 12:16] MED LIST changes: -AMLO-258 PO; -ARIP5TAB37 PO; -CELE100 PO; -CHL25 PO; +DAPT500V8 IV; -DIPH50CA35 PO; -ESOM20CA31 PO; -FLUT12AE18 IH; -IBUP-2077 PO; -ISOS60TA77 PO; -LISI-892 PO; -LISI-894 PO; -LITH300C3 PO; -LORA10TA7 PO; -METO25 PO; -NORT10CA2 PO; -ONDA-104 PO; +PANT-31 PO; +PRED-549 PO; +PRED-554 PO; -SUMA25TA15 PO
[2023-08-05 13:53] LABS: BASOPHILS % (AUTO) 0.9 % (0.0-2.0); EOSINOPHILS % (AUTO) 2.9 % (1.0-6.0); HEMATOCRIT 29.7 % (36-46); HEMOGLOBIN 9.5 g/dL (12.0-16.0); LYMPHOCYTES # (AUTO) 1.8 K/uL (1.0-4.8); LYMPHOCYTES % (AUTO) 28.5 % (22.0-44.0); MEAN CORPUSCULAR HGB CONC 31.9 G/dL (31.0-37.0); MEAN CORPUSCULAR VOLUME 85 fL (80-100); MONOCYTES # (AUTO) 0.3 K/uL (0.1-1.0); NEUTROPHILS % (AUTO) 62.7 % (40.0-70.0); PLATELET COUNT (AUTO) 219 K/uL (150-450); RED BLOOD CELL COUNT(AUTO) 3.51 MIL/uL (4.00-5.20); RED CELL DISTRIBUTION WIDTH 14.9 % (11.5-14.5); WHITE BLOOD COUNT (AUTO) 6.4 K/uL (4.5-11.0)
[2023-08-05 14:02] LABS: ANION GAP 7 mmol/L (8-16); CALCIUM, TOTAL 8.6 mg/dL (8.8-10.5); CARBON DIOXIDE 27 mmol/L (22-29); CHLORIDE 107 mmol/L (98-107); CREATININE 0.84 mg/dL (0.60-1.30); GLOMERULAR FILTR. RATE CALC > 60 mL/min (>60); GLUCOSE,RANDOM 89 mg/dL (70-110); POTASSIUM 4.4 mmol/L (3.5-5.1); SODIUM SERUM 141 mmol/L (136-145); UREA NITROGEN, BLOOD 21 mg/dL (7-18)
[2023-08-05 14:16] LABS: TROPONIN I-HIGH SENSITIVITY Less Than 4 ng/L (<51)
[2023-08-05 15:34] LABS: APPEARANCE,URINE CLEAR (CLEAR); BILIRUBIN,URINE NEGATIVE (NEGATIVE); COLOR,URINE COLORLESS (YELLOW); GLUCOSE, URINE (UA) NEGATIVE (NEGATIVE); KETONES,URINE NEGATIVE (NEGATIVE); LEUKOCYTE ESTERASE ,URINE NEGATIVE (NEGATIVE); NITRATE,URINE NEGATIVE (NEGATIVE); OCCULT BLOOD,URINE NEGATIVE (NEGATIVE); PROTEIN,URINE NEGATIVE (NEGATIVE); SPECIFIC GRAVITIY, URINE 1.005 (1.003-1.030); UROBILINOGEN,URINE <=1.0 mg/dL (<=1.0)
[2023-08-05 15:46] LABS: ANION GAP 4 mmol/L (8-16); CALCIUM, TOTAL 8.6 mg/dL (8.8-10.5); CARBON DIOXIDE 31 mmol/L (22-29); CHLORIDE 108 mmol/L (98-107); CREATININE 0.85 mg/dL (0.60-1.30); GLOMERULAR FILTR. RATE CALC > 60 mL/min (>60); GLUCOSE,RANDOM 96 mg/dL (70-110); POTASSIUM 4.5 mmol/L (3.5-5.1); SODIUM SERUM 143 mmol/L (136-145); UREA NITROGEN, BLOOD 20 mg/dL (7-18)
[2023-08-05 15:57] LABS: B-TYPE NATRIURETIC PEPTIDE 305 pg/mL (0-100)
[2023-08-05 15:59] LABS: ALANINE AMINOTRANSFERASE 44 U/L (12-78); ALBUMIN 2.9 g/dL (3.4-5.0); ALKALINE PHOSPHATASE 115 U/L (46-116); ASPARTATE AMINOTRANSFERASE 61 U/L (15-37); BILIRUBIN,TOTAL 0.2 mg/dL (0.1-1.0); TOTAL PROTEIN, SERUM 6.1 g/dL (6.4-8.2)
[2023-08-05 16:04] LABS: TROPONIN I-HIGH SENSITIVITY Less Than 4 ng/L (<51)
[2023-08-05 17:19] VITALS: BP 148/78; PULSE 58; RESP 18
== END 2023-08-05 17:33 | disposition home or self-care (01) ==
LOC: EMS 12:16
DX: R07.9 Chest pain, unspecified (principal); F41.9 Anxiety disorder, unspecified; D64.9 Anemia, unspecified; F32.A Depression, unspecified; K21.9 Gastro-esophageal reflux disease without esophagitis; E78.00 Pure hypercholesterolemia, unspecified; I10 Essential (primary) hypertension; E03.9 Hypothyroidism, unspecified; Z90.49 Acquired absence of other specified parts of digestive tract; Z88.1 Allergy status to other antibiotic agents; Z88.0 Allergy status to penicillin; Z88.5 Allergy status to narcotic agent; Z88.8 Allergy status to other drugs, medicaments and biological substances
CPT/HCPCS: 71045; 80048; 80053; 81003; 83880; 84484; 85025; 93005; 99285; 36415-L1; 36415-TC